=== PATIENT | female | born 1990 | race Caucasian/White ===

== ENCOUNTER 2016-05-23 13:00 | Emergency (ER) | payer OTHER ==
--- NOTE | 2016-05-23 13:12 | ER Document Report ---
ED Medical Screen (RME) - General Stated Complaint: LOWER ABDOMINAL PAIN Notes: 25 yo G1, 20 weeks gestation, c/o pain to lower abdomen and lower back x 2 days. feels hot and fatigued. + nausea. no vaginal bleeding. reports less movement. OB - [facility] - Related Data Allergies/Adverse Reactions: Pertussis Vaccines Allergy (Verified 05/23/16 13:09)
[2016-05-23 14:04] LABS: APPEARANCE,URINE SLIGHTLY-CLOUDY; BILIRUBIN,URINE NEGATIVE (NEGATIVE); GLUCOSE, URINE NEGATIVE (NEGATIVE); KETONES,URINE NEGATIVE (NEGATIVE); LEUKOCYTE ESTERASE,URINE TRACE (NEGATIVE); NITRITE,URINE NEGATIVE (NEGATIVE); PROTEIN,URINE NEGATIVE (NEGATIVE); URINE SPECIFIC GRAVITY 1.008; UROBILINOGEN,URINE NEGATIVE mg/dL (<2.0)
--- NOTE | 2016-05-23 16:52 | ER Document Report ---
ED GI/ - General Chief Complaint: Abdominal Pain Stated Complaint: LOWER ABDOMINAL PAIN Mode of Arrival: Ambulatory Information source: Patient Notes: 25-year-old female who reports is approximately 20 weeks , G1, presents to the emergency department complaining of intermittent bilateral lower abdominal/pelvic sharp pains that radiate to her lower back over the last 2 days. Also states has noted like there is less movement. Reports urinary frequency. Reports noted clear mucus-like discharge from vagina after urinating yesterday otherwise denies dysuria, fever, vaginal bleeding or any other discharge. States has appointment with IMPLEMENTATION ADVISOR tomorrow. TRAVEL OUTSIDE OF THE [place] IN LAST 30 DAYS: No - HPI Patient complains to provider of: Pelvic pain, Timing/Duration: Intermittent, Persistent Quality of pain: Sharp Severity at maximum: Moderate Severity in ED: Almost gone Pain Level: 2 Context: Vaginal bleeding (Compared to normal period): None : 1 OB ultrasound done: Yes vitamins taken: Yes Sexual history: Active. denies: New partner, Unprotected intercourse Similar symptoms previously: No Recently seen / treated by doctor: No - Related Data Allergies/Adverse Reactions: Pertussis Vaccines Allergy (Verified 05/23/16 13:09) Past Medical History - General Information source: Patient - Social History Smoking Status: Never Smoker Chew tobacco use (# tins/day): No Frequency of alcohol use: None Drug Abuse: None Lives with: Family Family History: Reviewed & Not Pertinent Patient has suicidal ideation: No Patient has homicidal ideation: No Endocrine Medical History: Reports: Hx Hypothyroidism Renal/ Medical History: Denies: Hx Peritoneal Dialysis Psychiatric Medical History: Reports: Hx Bipolar Disorder Surgical Hx: Negative - Immunizations Hx Diphtheria, Pertussis, Tetanus Vaccination: Yes Review of Systems - Review of Systems Constitutional: No symptoms reported EENT: No symptoms reported Cardiovascular: No symptoms reported Respiratory: No symptoms reported Gastrointestinal: No symptoms reported Genitourinary: See HPI Female Genitourinary: See HPI Musculoskeletal: No symptoms reported Skin: No symptoms reported Hematologic/Lymphatic: No symptoms reported Neurological/Psychological: No symptoms reported -: Yes All other systems reviewed and negative Physical Exam - Vital signs Vitals: Temp Pulse Resp BP Pulse Ox 98.2 F 87 18 116/64 99 05/23/16 13:08 05/23/16 13:08 05/23/16 13:08 05/23/16 13:08 05/23/16 13:08 Interpretation: Normal - General General appearance: Appears well, Alert - HEENT Head: Normocephalic, Atraumatic Eyes: Normal Pupils: PERRL - Respiratory Respiratory status: No respiratory distress Chest status: Nontender Breath sounds: Normal Chest palpation: Normal - Cardiovascular Rhythm: Regular Heart sounds: Normal auscultation Murmur: No Pulses: Normal: Radial Normal capillary refill: Yes - Abdominal Inspection: Normal Distension: No distension Bowel sounds: Normal Tenderness: Nontender Organomegaly: No organomegaly - Genitourinary Notes: Patient declined pelvic exam - Back Back: Normal, Nontender. No: Tender, Deformity/step-off, CVA tenderness, Vertebra tenderness, Scars, Scoliosis, Wounds, Other - Extremities General upper extremity: Normal inspection, Nontender, Normal color, Normal ROM , Normal strength, Normal temperature. No: Tender, Edema General lower extremity: Normal inspection, Nontender, Normal color, Normal ROM , Normal strength, Normal temperature, Normal weight bearing. No: Tender, Edema - Neurological Neuro grossly intact: Yes Cognition: Normal Orientation: AAOx4 [place] Coma Scale Eye Opening: Spontaneous [place] Coma Scale Verbal: Oriented [place]ila Coma Scale Motor: Obeys Commands [place] Coma Scale Total: 15 Speech: Normal Motor strength normal: LUE, RUE, LLE, RLE Sensory: Normal - Psychological Associated symptoms: Normal affect, Normal mood - Skin Skin Temperature: Warm Skin Moisture: Dry Skin Color: Normal Course - Re-evaluation Re-evalutation: 05/23/16 16:52 Patient hemodynamically stable, in no distress, afebrile, nontoxic, tolerating oral fluids and solids without difficulty or vomiting. OB ultrasound unremarkable. Trace leukocyte esterase and wbc's on UA. Urine culture obtained. Will give short course cephalexin, pt appears stable for discharge and agrees with home care, follow-up with Ob-Lockstitch Waistline Joiner tomorrow, and ED return precautions. Pt presentation, findings, ED care, and plan discussed with ED physician Dr. Walker who concurs with evaluation and treatment. - Vital Signs Vital signs: Temp Pulse Resp BP Pulse Ox 98.2 F 87 18 116/64 99 05/23/16 13:08 05/23/16 13:08 05/23/16 13:08 05/23/16 13:08 05/23/16 13:08 - Laboratory Laboratory results interpreted by me: 05/23/16 05/23/16 13:15 13:15 Beta HCG, Quant 9873.30 H Ur Leukocyte Esterase TRACE H - Diagnostic Test Radiology reviewed: Image reviewed, Reports reviewed Discharge - Discharge Clinical Impression: Pelvic pain during UTI (urinary tract infection) Qualifiers: Urinary tract infection type: site unspecified Hematuria presence: without hematuria Qualified Code(s): N39.0 - Urinary tract infection, site not specified Condition: Stable Disposition: HOME, SELF-CARE Instructions: Pelvic Pain in ([facility]), Urinary Tract Infection ([facility]), Cephalexin ([facility]), Acetaminophen Additional Instructions: Keep your appointment and follow-up with your Ob-Lockstitch Waistline Joiner tomorrow as discussed. Return to the Emergency Department for any worsening symptoms or concerns. Prescriptions: Cephalexin Monohydrate [Keflex 500 mg Capsule] 500 mg PO Q6H 5 Days Referrals: [facility] [Provider Group] - Follow up tomorrow
[2016-05-23 18:08] VITALS: BP 129/62
== END 2016-05-23 17:35 | disposition home or self-care (01) ==
LOC: ER 13:00
DX: N39.0 Urinary tract infection, site not specified (principal); R10.2 Pelvic and perineal pain; R10.30 Lower abdominal pain, unspecified; Z3A.20 20 weeks gestation of pregnancy; M54.5 Low back pain; R35.0 Frequency of micturition
CPT/HCPCS: 36415; 76805; 81001; 84702; 87086; 87804; 93976; 99284

== ENCOUNTER 2016-09-22 17:40 | Outpatient (CLI) | payer OTHER ==
[2016-09-22 18:17] LABS: APPEARANCE,URINE SLIGHTLY-CLOUDY; BILIRUBIN,URINE NEGATIVE (NEGATIVE); GLUCOSE, URINE NEGATIVE (NEGATIVE); KETONES,URINE NEGATIVE (NEGATIVE); LEUKOCYTE ESTERASE,URINE MODERATE (NEGATIVE); NITRITE,URINE NEGATIVE (NEGATIVE); PROTEIN,URINE NEGATIVE (NEGATIVE); URINE SPECIFIC GRAVITY 1.018; UROBILINOGEN,URINE NEGATIVE mg/dL (<2.0)
[2016-09-22 18:48] LABS: URINE BARBITURATES SCREEN NEGATIVE; URINE METHADONE SCREEN NEGATIVE; URINE OPIATES LOW NEGATIVE; URINE PHENCYCLIDINE SCREEN NEGATIVE
--- NOTE | 2016-09-22 19:11 | Non Stress Test Report ---
Non Stress Test Datetime Report Generated by CPN: 09/22/2016 19:10 DEMOGRAPHIC EGA NST: 37.3 INDICATION Indication for Study: Decreased Movement VITAL SIGNS Temperature - NST: 98.0 Pulse - NST: 84 NBPSYS NST: 89 NBPDIA NST: 55 MONITORING Monitor Explained: Monitor Explained; Test Explained; Patient Verbalized Understanding Time on Monitor: 09/22/2016 18:04 Time off Monitor: 09/22/2016 18:58 NST Duration: 54 NST INTERVENTIONS NST Interventions: PO Hydration; Reposition Patient Physician Notified NST: Dr. Bib BABY A: [id number] BABY A Movement : Decreased Contraction Frequency : Rare FHR Baseline : 140 Accelerations : 15X15 Decelerations : None Variability : Moderate 6-25bpm NST Review: Meets Criteria for Reactive NST NST Review and Verified By : Kelley Nick RN NST Results: Reactive NST REPORT Report Trigger: Send Report
== END 2016-09-22 19:05 | disposition home or self-care (01) ==
LOC: LC 17:40
PROVIDERS: ATTEND Obstetrics & Gynecology
PROC: 4A1HXCZ Monitoring of Products of Conception, Cardiac Rate, External Approach (ICD-10-PCS; principal; 2016-09-22)
DX: O36.8130 Decreased fetal movements, third trimester, not applicable or unspecified (principal); Z3A.37 37 weeks gestation of pregnancy
CPT/HCPCS: 59025; 80307; 81005

== ENCOUNTER 2016-10-02 20:07 | Inpatient (IN) | payer OTHER ==
[2016-10-02] MEDS ORDERED: RINGERS SOLUTION,LACTATED 300 ML IV ONE (20:36)
[2016-10-02] MEDS ORDERED: DINOPROSTONE 10 MG VAGINAL INSERT.SR PV PRN (20:36)
[2016-10-02] MEDS ORDERED: OXYTOCIN/NORMAL SALINE 1,000 ML IV PRN (20:36)
[2016-10-02] MEDS ORDERED: DINOPROSTONE 10 MG VAGINAL INSERT.SR ONE (21:21)
[2016-10-02] MEDS: RINGERS SOLUTION,LACTATED 1,000 ML IV PRN (21:27)
[2016-10-02 21:33] LABS: ABSOLUTE EOSINOPHILS # (AUTO) 0.1 10^3/uL (0.0-0.6); ABSOLUTE LYMPHOCYTES (AUTO) 1.7 10^3/uL (0.5-4.7); ABSOLUTE MONOCYTES (AUTO) 0.6 10^3/uL (0.1-1.4); ABSOLUTE NEUT (AUTO) 8.2 10^3/uL (1.7-8.2); BASOPHILS % (AUTO) 0.3 % (0-2); EOSINOPHILS % (AUTO) 0.5 % (0-6); HEMATOCRIT 35.2 % (36.0-47.0); HEMOGLOBIN 11.9 g/dL (12.0-15.5); HGB HCT DIFFERENCE 0.5; LYMPHOCYTES % (AUTO) 16.4 % (13-45); MEAN CORPUSCULAR HEMOGLOBIN 29.9 pg (27.0-33.4); MEAN CORPUSCULAR HGB CONC 33.9 g/dL (32.0-36.0); MEAN CORPUSCULAR VOLUME 88 fl (80-97); MONOCYTES % (AUTO) 5.5 % (3-13); RED BLOOD COUNT 3.99 10^6/uL (3.72-5.28); RED CELL DISTRIBUTION WIDTH 16.3 % (11.5-14.0); SEGMENTED NEUTROPHILS % (AUTO) 77.3 % (42-78); WHITE BLOOD COUNT 10.6 10^3/uL (4.0-10.5)
[2016-10-02 21:33] LABS: APPEARANCE,URINE SLIGHTLY-CLOUDY; BILIRUBIN,URINE NEGATIVE (NEGATIVE); GLUCOSE, URINE NEGATIVE (NEGATIVE); KETONES,URINE NEGATIVE (NEGATIVE); LEUKOCYTE ESTERASE,URINE LARGE (NEGATIVE); NITRITE,URINE NEGATIVE (NEGATIVE); PROTEIN,URINE NEGATIVE (NEGATIVE); URINE SPECIFIC GRAVITY 1.027; UROBILINOGEN,URINE NEGATIVE mg/dL (<2.0)
[2016-10-02] MEDS ORDERED: ACETAMINOPHEN 325 MG TABLET PO ONE (21:44)
[2016-10-02] MEDS ORDERED: ZOLPIDEM TARTRATE 5 MG TABLET PO ONE (21:44)
[2016-10-02 21:45] LABS: ALANINE AMINOTRANSFERASE 20 U/L (9-52); ALBUMIN 2.9 g/dL (3.5-5.0); ALKALINE PHOSPHATASE 108 U/L (38-126); ANION GAP 9 (5-19); ASPARTATE AMINO TRANSFERASE 13 U/L (14-36); BILIRUBIN,DIRECT 0.3 mg/dL (0.0-0.4); BILIRUBIN,TOTAL 0.5 mg/dL (0.2-1.3); BLOOD UREA NITROGEN 12 mg/dL (7-20); CALCIUM 8.5 mg/dL (8.4-10.2); CARBON DIOXIDE 20 mmol/L (22-30); CHLORIDE 107 mmol/L (98-107); GLUCOSE 86 mg/dL (75-110); POTASSIUM 3.9 mmol/L (3.6-5.0); SODIUM 136.3 mmol/L (137-145); TOTAL PROTEIN 5.7 g/dL (6.3-8.2)
[2016-10-02] MEDS ORDERED: ACETAMINOPHEN 325 MG TABLET ONE (21:53)
[2016-10-02] MEDS ORDERED: ZOLPIDEM TARTRATE 5 MG TABLET ONE (21:54)
[2016-10-02 22:00] LABS: URINE BARBITURATES SCREEN NEGATIVE; URINE METHADONE SCREEN NEGATIVE; URINE OPIATES LOW NEGATIVE; URINE PHENCYCLIDINE SCREEN NEGATIVE
[2016-10-03] MEDS: RINGERS SOLUTION,LACTATED 1,000 ML IV PRN (02:52)
--- NOTE | 2016-10-03 10:58 | L&D Progress Notes ---
PROGRESS NOTES Datetime Report Generated by CPN: 10/03/2016 10:57 PROGRESS NOTE Plan: Discharge Vital Signs : Reviewed Comment: Pt decided to not proceed further with induction of labor, Will d/c home, undelivered, and in stable condition IOL planned for 40w nst/paddy/growth brenden @ [facility] at 2pm Labor prec, fm counts discussed VAGINAL EXAM Dilatation: 1 Contractions: rare MEMBRANES Membranes: Intact FETUS A FHR - Baseline: 155 Monitoring: External US Variability: Moderate 6-25bpm Accelerations: 15X15 Decelerations: None FHR Category: Category I SIGNATURE SIGNATURE: [id number] SIGNATURE: [id number] Assignment: Lisa Thorne MD Signature: with User ID: [email or web address] : with User ID: [email or web address]
[2016-10-03 11:01] VITALS: BP 136/75
--- NOTE | 2016-10-03 11:05 | PDOC DISCHARGE SUMMARY ---
General - Admit/Disc Date/PCP Admission Date/Primary Care Provider: 10/02/16 20:07 CHRISTOPHER SHETH MD Discharge Date: 10/03/16 - Discharge Diagnosis (1) Failed induction of labor Is this a current diagnosis for this admission?: YesSummary: pt was iol for poly and gdm, unripe cervix with little change after cervidil, cat 1 fhts, pt choose d/c and to return in 1 w. Has in office f/u saturday at 2pm, (2) GDM, class A1 Is this a current diagnosis for this admission?: YesSummary: stable, has f/u (3) Is this a current diagnosis for this admission?: YesSummary: undelivered, in stable condition - Additional Information Resuscitation Status: Full Code Discharge Diet: Diabetic Discharge Activity: Activity As Tolerated Home Medications: Vit/Iron Fumarate/FA [ Tablet] 1 each PO DAILY 09/22/16 History of Present Illness History of Present Illness: REUBEN BARRON is a 26 year old female Hospital Course Hospital Course: cervidil X1 with minimal change Physical Exam - Physical Exam Vital Signs: Temp Pulse Resp BP Pulse Ox 97.8 F 73 18 136/75 H 98 10/03/16 10:53 10/03/16 10:53 10/03/16 10:53 10/03/16 10:53 10/03/16 10:53 Intake & Output 10/02/16 10/03/16 10/04/16 06:59 06:59 06:59 Weight 126.9 kg General appearance: PRESENT: no acute distress Neurological exam: PRESENT: alert - Gynecological Exam Labia: normal Urethra: normal Introitus: normal Perineum: normal Vagina: normal Cervix: normal Uterus: normal Result Laboratory Results: 10/02/16 21:14 10/02/16 21:14 10/02/16 10/02/16 10/02/16 20:35 21:14 21:14 WBC 10.6 H RBC 3.99 Hgb 11.9 L Hct 35.2 L MCV 88 MCH 29.9 MCHC 33.9 RDW 16.3 H Plt Count 151 Seg Neutrophils % 77.3 Lymphocytes % 16.4 Monocytes % 5.5 Eosinophils % 0.5 Basophils % 0.3 Absolute Neutrophils 8.2 Absolute Lymphocytes 1.7 Absolute Monocytes 0.6 Absolute Eosinophils 0.1 Absolute Basophils 0.0 Sodium Potassium Chloride Carbon Dioxide Anion Gap BUN Creatinine Est GFR ( Amer) Est GFR (Non-Af Amer) Glucose Calcium Total Bilirubin AST ALT Alkaline Phosphatase Total Protein Albumin Urine Color YELLOW Urine Appearance SLIGHTLY-CLOUDY Urine pH 5.0 Ur Specific [place] 1.027 Urine Protein NEGATIVE Urine Glucose (UA) NEGATIVE Urine Ketones NEGATIVE Urine Blood SMALL H Urine Nitrite NEGATIVE Ur Leukocyte Esterase LARGE H Blood Type A POSITIVE Antibody Screen NEGATIVE 10/02/16 21:14 WBC RBC Hgb Hct MCV MCH MCHC RDW Plt Count Seg Neutrophils % Lymphocytes % Monocytes % Eosinophils % Basophils % Absolute Neutrophils Absolute Lymphocytes Absolute Monocytes Absolute Eosinophils Absolute Basophils Sodium 136.3 L Potassium 3.9 Chloride 107 Carbon Dioxide 20 L Anion Gap 9 BUN 12 Creatinine 0.70 Est GFR ( Amer) > 60 Est GFR (Non-Af Amer) > 60 Glucose 86 Calcium 8.5 Total Bilirubin 0.5 AST 13 L ALT 20 Alkaline Phosphatase 108 Total Protein 5.7 L Albumin 2.9 L Urine Color Urine Appearance Urine pH Ur Specific [place] Urine Protein Urine Glucose (UA) Urine Ketones Urine Blood Urine Nitrite Ur Leukocyte Esterase Blood Type Antibody Screen Plan Discharge Plan: d/c home with labor prec. f/u in the office saturday at 2pm iol scheduled for saturday night Time Spent: Less than 30 Minutes
--- NOTE | 2016-10-04 13:10 | Admission Physical ---
Datetime Report Generated by CPN: 10/04/2016 13:10 CURRENT ADMISSION Hx Assessment: The History has been Reviewed and is Current Chief Complaint: Scheduled Induction of Labor Indication for Induction: Polyhydramnios; Other Indication for Induction- Other: GDMA1 Admit Plan: Initiate Labor Induction Protocol ALLERGIES Medication Allergies: Yes Medication Allergies: Pertussis Vaccines (05/23/2016) Latex: No Latex Allergies Food Allergies: N/A Environmental Allergies: N/A OBSTETRICAL HISTORY EDC: 10/10/2016 00:00 : 1 Para: 0 Term: 0 : 0 SAB: 0 IAB: 0 Ectopic: 0 Livin Cesareans: 0 VBACs: 0 Multiple Births: 0 Gestational Diabetes: No Rh Sensitization: No Incompetent Cervix: No SYLVIA: No Infertility: No ART Treatment: No Uterine Anomaly: No IUGR: No Hx Previous C/S: No Macrosomia: No Hx Loss/Stillborn: No PIH: No Hx : No Placenta Previa/Abruption: No Depression/PP Depression: No PTL/PROM: No Post Hemorrhage: No Current Procedures: Ultrasound; NST Obstetrical History Comments: G1-Current GDM SEE RECORDS Alcohol: No Marijuana : No Cocaine: No Other Illicit Drugs: No Cigarettes: Never Smoker. 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 Surgery: No Heart Disease: No Hosp/Surgery: Yes Autoimmune Disorder: No Anesthetic Complications: No Kidney Disease: Yes Neuro/Epilepsy: No Psychiatric Disorders: Yes Other Medical Diseases: No Hepatitis/Liver Disease: No Significant Family History: No Varicosities/Phlebitis: No Thyroid Dysfunction: Yes INFECTIOUS HISTORY Gonorrhea: No Genital Herpes: No Chlamydia: No Tuberculosis: No Syphilis: No Hepatitis: No HIV/AIDS Exposure: No Rash or Viral Illness: No HPV: No PHYSICAL EXAM General: Normal HEENT: Normal Neurologic: Normal Thyroid: Normal Heart: Normal Lungs: Normal Breast: Normal Back: Normal Abdomen: Normal Genitourinary Exam: Normal Extremities: Normal DTRs: Normal Pelvic Type: Adequate Physical Exam Comments: polyhydramnios, efw 7.5 pounds, FS last night was 86 FETUS A Monitoring: External US FHR Category: Category I Admit Comment: cervidil cervical ripening, assure good glycemic control intrapartum PLANS FOR LABOR AND DELIVERY Labor and Delivery: None Pain Management: None Feeding Preference: Breast Benefit of Breast Feed Discussed: Yes Circumcision: Yes INFORMED CONSENT Signature: with User ID: [email or web address]
== END 2016-10-03 11:16 | disposition home or self-care (01) | DRG 781 ==
LOC: LR 20:07
PROVIDERS: ADMIT Specialist; ATTEND Specialist
PROC: 3E0P7GC Introduction of Other Therapeutic Substance into Female Reproductive, Via Natural or Artificial Opening (ICD-10-PCS; principal; 2016-10-02)
DX: O61.0 Failed medical induction of labor (principal); O24.419 Gestational diabetes mellitus in pregnancy, unspecified control; O40.3XX0 Polyhydramnios, third trimester, not applicable or unspecified; O99.283 Endocrine, nutritional and metabolic diseases complicating pregnancy, third trimester; E07.9 Disorder of thyroid, unspecified; Z3A.39 39 weeks gestation of pregnancy; Z88.7 Allergy status to serum and vaccine
CPT/HCPCS: 36415; 59025; 80053; 80307; 81005; 82962; 85025; 86592; 86850; 86900; 86901; J3490

== ENCOUNTER 2016-10-07 22:15 | Inpatient (IN) | payer OTHER ==
--- NOTE | 2016-10-07 22:27 | L&D Progress Notes ---
PROGRESS NOTES Datetime Report Generated by BEN: 10/07/2016 22:27 PROGRESS NOTE Comment: See note by CNM. Reviewed with pt regarding risks of IOL and risks/benefits of remaining undelivered until 40wks. Reviewed plan if continued with IOL would be FB/pitocin/poss cytotec since cvx stil 04/25/hi/post/soft. Reviewed poss continued IOL would continue until tomorrow day. Reviewed risk of Chorio, emergency c/s, Cord prolapse with AROM/SROM, failed induction etc. Questions answered. Pt is with well controlled GDM and poly. EFW 7-8#. Reviewed Indications for IOL and recommendations for diagnosis and reviewed risks of IOL as pt reports that had not been d/w her before. Patient and family discussed options and pt desires to wait a couple of days and proceed when closer to [place]. IOL scheduled for 10/09 for cervidil and f/u scheduled in the office for NST/FEDERICO/Growth US on Saturday. She reports that she thinks she may want c/s - Primary C/S to be d/w pt in the office and will be scheduled if her provider and patient desire to proceed with primary C/S. SIGNATURE SIGNATURE: [id number];[id number] SIGNATURE: [id number] Signature: with User ID: [email or web address]
--- NOTE | 2016-10-07 22:27 | Non Stress Test Report ---
Non Stress Test Datetime Report Generated by CPN: 10/07/2016 22:27 DEMOGRAPHIC EGA NST: 39.0 INDICATION Indication for Study: Other Indication for Study (NST) Other: FAILED IOL MONITORING Monitor Explained: Monitor Explained; Test Explained; Patient Verbalized Understanding Time on Monitor: 10/03/2016 10:30 Time off Monitor: 10/03/2016 11:01 NST Duration: 31 NST INTERVENTIONS NST Interventions: PO Hydration; IV Fluids; Reposition Patient BABY A: [id number] BABY A Movement : Present Contraction Frequency : IRREG FHR Baseline : 140 Accelerations : 15X15 Decelerations : None Variability : Moderate 6-25bpm NST Review: Meets Criteria for Reactive NST NST Review and Verified By : D Bellavance RNC NST Results: Reactive NST REPORT Report Trigger: Send Report
[2016-10-07 22:53] LABS: APPEARANCE,URINE SLIGHTLY-CLOUDY; BILIRUBIN,URINE NEGATIVE (NEGATIVE); GLUCOSE, URINE NEGATIVE (NEGATIVE); KETONES,URINE NEGATIVE (NEGATIVE); LEUKOCYTE ESTERASE,URINE LARGE (NEGATIVE); NITRITE,URINE NEGATIVE (NEGATIVE); PROTEIN,URINE NEGATIVE (NEGATIVE); UROBILINOGEN,URINE NEGATIVE mg/dL (<2.0)
[2016-10-07 23:09] LABS: URINE BARBITURATES SCREEN NEGATIVE; URINE METHADONE SCREEN NEGATIVE; URINE OPIATES LOW NEGATIVE; URINE PHENCYCLIDINE SCREEN NEGATIVE
[2016-10-08 00:05] LABS: AMNISURE (ROM) POSITIVE (NEGATIVE)
[2016-10-08 00:44] LABS: ABSOLUTE LYMPHOCYTES (AUTO) 1.4 10^3/uL (0.5-4.7); ABSOLUTE MONOCYTES (AUTO) 0.7 10^3/uL (0.1-1.4); ABSOLUTE NEUT (AUTO) 11.6 10^3/uL (1.7-8.2); BASOPHILS % (AUTO) 0.2 % (0-2); EOSINOPHILS % (AUTO) 0.3 % (0-6); HEMATOCRIT 37.3 % (36.0-47.0); HEMOGLOBIN 12.6 g/dL (12.0-15.5); HGB HCT DIFFERENCE 0.5; LYMPHOCYTES % (AUTO) 10.2 % (13-45); MEAN CORPUSCULAR HEMOGLOBIN 29.3 pg (27.0-33.4); MEAN CORPUSCULAR HGB CONC 33.7 g/dL (32.0-36.0); MEAN CORPUSCULAR VOLUME 87 fl (80-97); MONOCYTES % (AUTO) 4.9 % (3-13); RED BLOOD COUNT 4.28 10^6/uL (3.72-5.28); RED CELL DISTRIBUTION WIDTH 15.8 % (11.5-14.0); SEGMENTED NEUTROPHILS % (AUTO) 84.4 % (42-78); WHITE BLOOD COUNT 13.7 10^3/uL (4.0-10.5)
[2016-10-08] MEDS: RINGERS SOLUTION,LACTATED 1,000 ML IV PRN ×3 (00:57→02:15)
[2016-10-08] MEDS ORDERED: BUPIVACAINE HCL 0.25 % INJ/PF (2.5 MG/1 ML) 30 ML VIAL ONE (01:58)
[2016-10-08] MEDS ORDERED: FENTANYL/BUPIVACAINE/NS/PF 200 MCG/100 ML RTUINJ EPI ONE (01:58)
[2016-10-08] MEDS ORDERED: EPHEDRINE SULFATE INJ 50 MG/1 ML AMPULE ONE ×3 (01:58→13:57)
[2016-10-08] MEDS ORDERED: LIDOCAINE 1% INJ-PF (10 MG/ML) 30 ML SDV ONE ×2 (02:53→04:22)
[2016-10-08] MEDS ORDERED: OXYTOCIN/NORMAL SALINE 20 UNIT/1,000 ML RTUINJ ONE (04:22)
[2016-10-08] MEDS ORDERED: MISOPROSTOL 0.2 MG TABLET ONE (04:22)
[2016-10-08] MEDS ORDERED: OXYTOCIN/NORMAL SALINE 1,000 ML IV PRN ×2 (07:58→13:23)
[2016-10-08] MEDS ORDERED: SODIUM BICARBONATE 8.4% INJ 50 MEQ/50 ML DISP.SYRIN ONE (09:11)
[2016-10-08] MEDS ORDERED: LIDOCAINE 2%/EPINEPHRINE INJ 20 ML VIAL ONE (09:11)
[2016-10-08] MEDS ORDERED: PHENYLEPHRINE HCL INJ/PF 10 MG/1 ML SDV ONE (09:29)
--- NOTE | 2016-10-08 10:30 | L&D Progress Notes ---
PROGRESS NOTES Datetime Report Generated by CPN: 10/08/2016 10:30 PROGRESS NOTE Impression: Normal Progression of Labor Procedures- Other: morning rounds Plan: Continue Present Management Informed Consent Obtained: Vaginal Delivery; Section Delivery; Induction of Labor; Risks, Benefits and Alternatives Discussed Vital Signs : Reviewed; Within Normal Limits Comment: S: pt. reporting pelvic and hip pain on left side with contractions O: as stated above A:Labor at term- stable, Cat II tracing decels resolving with position changes P: continue position changes, will reassess as clinically indicated or earlier prn. Dr. Jalloh in unit and aware VAGINAL EXAM Dilatation: 8 Dilatation: 4 Effacement: 90 Station: 0 Station: -2 Contractions: 2-4 MEMBRANES Pooling: Positive Membranes: Ruptured Membranes: Ruptured Amniotic Fluid Color: Clear Amniotic Fluid Color: Clear FETUS A Monitoring: Internal Scalp Electrode Variability: Moderate 6-25bpm Decelerations: Early; Late; Variable FHR Category: Category II : 39.5 Estimated Weight (gm): 3500 Presentation: Vertex FETUS C SIGNATURE: [id number] Assignment: Tristen Jalloh DO Signature: with User ID: [email or web address] : with User ID: [email or web address]
[2016-10-08] MEDS ORDERED: DIBUCAINE 1% OINTMENT 28 GM TP PRN (13:23)
[2016-10-08] MEDS ORDERED: MAGNESIUM HYDROXIDE SUSP 30 ML UDCUP PO PRN (13:23)
[2016-10-08] MEDS ORDERED: ACETAMINOPHEN 650 MG SUPP.RECT PR PRN (13:23)
[2016-10-08] MEDS ORDERED: ACETAMINOPHEN WITH CODEINE #3 TABLET PO PRN (13:23)
[2016-10-08] MEDS ORDERED: MEASLES,MUMPS&RUBELLA VACC/PF 0.5 ML VIAL SUBCUT PRN (13:23)
[2016-10-08] MEDS ORDERED: PROMETHAZINE HCL 25 MG TABLET PO PRN (13:23)
[2016-10-08] MEDS ORDERED: GLYCERIN/WITCH HAZEL LEAF 1 EACH MED..PAD TP PRN (13:23)
[2016-10-08] MEDS ORDERED: PROMETHAZINE HCL INJ 25 MG/1 ML VIAL IV PRN (13:23)
[2016-10-08] MEDS ORDERED: PSEUDOEPHEDRINE HCL 30 MG TABLET PO PRN (13:23)
[2016-10-08] MEDS ORDERED: BENZOCAINE/MENTHOL AEROSOL SPRAY 56 ML TOP PRN (13:23)
[2016-10-08] MEDS ORDERED: DIPHENHYDRAMINE HCL 25 MG CAPSULE PO PRN (13:23)
[2016-10-08] MEDS ORDERED: PROMETHAZINE HCL 25 MG SUPP.RECT PR PRN (13:23)
[2016-10-08] MEDS ORDERED: NA PHOS,M-B/NA PHOS,DI-BA (ADULT) 133 ML ENEMA PR PRN (13:23)
[2016-10-08] MEDS ORDERED: DIPH/PERTUSS(ACELL)/TETANUS VAC/PF 0.5 ML SYR (>=10YO) IM PRN (13:23)
--- NOTE | 2016-10-08 14:17 | Delivery Summary ---
Del Sum A-C Datetime Report Generated by CPN: 10/08/2016 14:17 DELIVERY PERSONNEL DELIVERY PERSONNEL: [id number] Delivery Doctor:: Tristen Jalloh DO Nurse Battery Assembler Certified:: Shelly Tenorio CNM Labor and Delivery Nurse:: Kelley Nick RN Neonatal Nurse Practitioner:: HEATHER Tsai Nursery Nurse:: Pat Cadet RN Nursery Nurse:: Britany Gomes RN Student Observers:: Talia Abraham student nurse Medical Education Coordinator/BUSINESS ANALYTICS DIRECTOR: Nirmala Soto CNA II Medical Education Coordinator/BUSINESS ANALYTICS DIRECTOR: Deborah Michelle, BIG DATA HADOOP DEVELOPER MATERNAL INFORMATION Delivery Anesthesia: Epidural Medications After Delivery: Pitocin Bolus-Please Comment; Pitocin Drip 20 Units/1000ml NSS Estimated Blood Loss (ml): 150 Maternal Complications: None Provider Comments: Pt. progressed to c/c/0 with urge to push. Began pushing and with much coaching went on to deliver a viable baby boy with vigorous respiratory effort and cry with tactile stimulation. Cord clamped x 2 and cut and baby placed on maternal abdomen then handed to nursery for evaluation. Placenta delivered spontaneously intact (3vc noted). Fundus firm @ u-1 and bleeding stable. Vaginal and perineual inspection revealed a small abrasion as noted above but hemostatic. Mother and baby remain in room and stable at this time. Nursery in room for delivery due to prolonged bradycardia. Dr. Jalloh also in room for delivery. LABOR SUMMARY EDC: 10/10/2016 00:00 No. Babies in Womb: 1 Attempted: No Labor Anesthesia: Epidural LABOR INFORMATION Reason for Induction: Not Applicable Onset of Labor: 10/07/2016 22:48 Complete Dilatation: 10/08/2016 11:19 Oxytocin: Augmentation Group B Beta Strep: Negative Antibiotics # of Doses: 0 Antibiotics Time of Last Dose: n/a Name of Antibiotic Given: n/a Steroids Given: None Reason Steroids Not Administered: Not Applicable MEMBRANES Membranes Rupture Method: Spontaneous Rupture of Membranes: 10/07/2016 23:27 Length of Rupture (hr): 12.73 Amniotic Fluid Color: Clear Amniotic Fluid Amount: Small Amniotic Fluid Odor: Normal STAGES OF LABOR Stage 1 hr: 12 Stage 1 min: 31 Stage 2 hr: 0 Stage 2 min: 52 Stage 3 hr: 0 Stage 3 min: 8 Total Time in Labor hr: 13 Total Time in Labor min: 31 VAGINAL DELIVERY Episiotomy: None Laceration Extension: First Degree Laceration Type: None Other Laceration: superficial vaginal abrasion-hemostatic Laceration Repair: Not Applicable Laceration Repair Note: n/a Sponge Count Correct: N/A CSECTION DELIVERY Primary Indication: N/A Secondary Indication: N/A CSection Incision: N/A BABY A INFORMATION Infant Delivery Date/Time: 10/08/2016 12:11 Method of Delivery: Vaginal Born in Route : No : N/A Forceps: N/A Vacuum Extraction: N/A Shoulder Dystocia : No PRESENTATION/POSITION BABY A Presentation: Cephalic Cephalic Presentation: Vertex Vertex Position: Left Occipital Anterior Breech Presentation: N/A PLACENTA INFORMATION BABY A Placenta Delivery Time : 10/08/2016 12:19 Placenta Method of Delivery: Spontaneous Placenta Status: Delivered SCORES BABY A Heart Rate 1 min: >100 bpm Resp Effort 1 min: Good Cry Reflex Irritability 1 min: Cough or Sneeze or Pulls Away Muscle Tone 1 min: Active Motion Color 1 min: Body [place], Extremities Blue Resuscitation Effort 1 min: Tactile Stimulation SCORE 1 MIN: 9 Heart Rate 5 min: >100 bpm Resp Effort 5 min: Good Cry Reflex Irritability 5 min: Cough or Sneeze or Pulls Away Muscle Tone 5 min: Active Motion Color 5 min: Body [place], Extremities Blue Resuscitation Effort 5 min: N/A SCORE 5 MIN: 9 Resuscitation Effort 10 min: N/A INFORMATION BABY A Gestational Age at Delivery: 39.5 Gestational Status: Full Term- 39- 40.6 Weeks Outcome : Liveborn Infant Condition : Stable Infant Sex: Male IDENTIFICATION BABY A Infant Verification Date/Time: 10/08/2016 13:09 ID Band Number: [id number] Mother's Name Verified: Yes RN Verifying Infant: Allymaggie Nick, RN Additional Verifying Personnel: Hailee Colvin, RN WEIGHT/LENGTH BABY A Birthweight (gm): 3240 Infant Weight (lb): 7 Infant Weight (oz): 2 Infant Length (in): 20.50 Length (cm): 52.07 CORD INFORMATION BABY A No. Cord Vessels: 3 Nuchal Cord : Around Neck x1, Loose Cord Blood Taken: Yes-For Storage (Mom's Blood type +) Suction: Mouth; Nose ASSESSMENT BABY A Complications: Extended Bradycardia Physical Findings at Delivery: Caput Succedaneum; Molding of the Head; Puncture Wound from Scalp Electrode Infant Respirations: Appears Normal Skin to Skin: Yes Skin to Skin Time (min): 37 Pastoral Counselor/ALS Called : No Care By: Madan Cadet RN Transferred To: Remains with Mother BABY B INFORMATION : N/A
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
[2016-10-08] MEDS: FERROUS SULFATE 325 MG TABLET PO SCH (17:59)
[2016-10-08] MEDS: DOCUSATE SODIUM 100 MG CAPSULE PO SCH (17:59)
[2016-10-08] MEDS: IBUPROFEN 800 MG TABLET PO SCH ×2 (18:04→21:27)
[2016-10-08] MEDS: FAMOTIDINE 20 MG TABLET PO SCH (21:28)
[2016-10-09] MEDS: IBUPROFEN 800 MG TABLET PO SCH ×3 (05:22→21:02)
[2016-10-09 07:26] LABS: HEMATOCRIT 31.8 % (36.0-47.0); HEMOGLOBIN 10.6 g/dL (12.0-15.5); MEAN CORPUSCULAR HEMOGLOBIN 29.5 pg (27.0-33.4); MEAN CORPUSCULAR HGB CONC 33.5 g/dL (32.0-36.0); MEAN CORPUSCULAR VOLUME 88 fl (80-97); RED BLOOD COUNT 3.61 10^6/uL (3.72-5.28); WHITE BLOOD COUNT 11.8 10^3/uL (4.0-10.5)
--- NOTE | 2016-10-09 09:31 | PDOC PROGRESS REPORT ---
Subjective-OB Subjective: Post Delivery Day: 26 year old. Denies any needs at this time Sitting up in bed, showing me pictures of baby, hsb at BS, baby weighed 7-2, desires circumcision, has help at home, eating well, ambulating, not on any medications, , moderate bleeding Physical Exam (OB) Vital Signs: Temp Pulse Resp BP Pulse Ox 97.9 F 68 16 108/67 99 10/09/16 07:28 10/09/16 07:28 10/09/16 07:28 10/09/16 07:28 10/09/16 07:28 Intake & Output 10/08/16 10/09/16 10/10/16 06:59 06:59 06:59 Weight 127.3 kg - Lochia Lochia Amount: Scant < 10 ml Lochia Color: Rubra/Red - Abdomen Description: Soft, Flat Hernia Present: No Fundal Description: Firm, Midline Fundal Height: u/u - u/2 Objective-Diagnostic Laboratory: 10/09/16 07:03 10/09/16 07:03 WBC 11.8 H RBC 3.61 L Hgb 10.6 L Hct 31.8 L MCV 88 MCH 29.5 MCHC 33.5 RDW 16.0 H Plt Count 146 L Assessment and Plan(PN) - Assessment and Plan (1) Vaginal delivery Is this a current diagnosis for this admission?: Yes (2) GDM, class A1 Is this a current diagnosis for this admission?: Yes - Time Spent with Patient Time with patient: Less than 15 minutes Medications reviewed and adjusted accordingly: Yes - Disposition Anticipated Discharge: Home Within: within 24 hours
[2016-10-09] MEDS: FAMOTIDINE 20 MG TABLET PO SCH ×2 (10:25→21:02)
[2016-10-09] MEDS: DOCUSATE SODIUM 100 MG CAPSULE PO SCH ×2 (10:25→17:26)
[2016-10-09] MEDS: SENNOSIDES/DOCUSATE 8.6-50 MG 1 EACH TABLET PO SCH (10:25)
[2016-10-09] MEDS: FERROUS SULFATE 325 MG TABLET PO SCH ×2 (10:25→17:25)
[2016-10-09] MEDS: PRENATAL VITAMIN W-O CA NO5/FE FUMARATE/FA CAPSULE PO SCH (10:26)
[2016-10-10] MEDS: IBUPROFEN 800 MG TABLET PO SCH ×2 (06:01→13:46)
[2016-10-10 08:36] VITALS: BP 119/81
[2016-10-10] MEDS: DOCUSATE SODIUM 100 MG CAPSULE PO SCH (10:06)
[2016-10-10] MEDS: FERROUS SULFATE 325 MG TABLET PO SCH (10:06)
[2016-10-10] MEDS: SENNOSIDES/DOCUSATE 8.6-50 MG 1 EACH TABLET PO SCH (10:06)
[2016-10-10] MEDS: FAMOTIDINE 20 MG TABLET PO SCH (10:06)
[2016-10-10] MEDS: PRENATAL VITAMIN W-O CA NO5/FE FUMARATE/FA CAPSULE PO SCH (10:07)
--- NOTE | 2016-10-10 10:48 | PDOC DISCHARGE SUMMARY ---
Final Diagnosis Discharge Date: 10/10/16 Discharge Data - Discharge Medication Home Medications: Vit/Iron Fumarate/FA [ Tablet] 1 each PO DAILY 09/22/16 Docusate Sodium [Colace 100 mg Capsule] 100 mg PO BID #60 capsule 10/10/16 Ferrous Sulfate [Feosol 325 mg Tablet] 325 mg PO BID #60 tablet 10/10/16 Ibuprofen [Motrin 800 mg Tablet] 800 mg PO Q8 #60 tablet 10/10/16 Gestational Age: 39.5 Reason(s) for Admission: Onset of Labor, Gestional Diabetes Procedures: NST Intrapartum Procedure(s): Spontaneous Vaginal Delivery - [place] Data Baby 1 Male at 1 minute: 9 at 5 minutes: 9 Weight: 3240 kg Home with Mother: Yes Complications: No - Diagnosis Test Laboratory: Temp Pulse Resp BP Pulse Ox 97.7 F 79 16 119/81 100 10/10/16 07:57 10/10/16 07:57 10/10/16 07:57 10/10/16 07:57 10/10/16 07:57 10/07/16 10/08/16 10/09/16 22:25 00:28 07:03 RBC 4.28 3.61 L Hgb 12.6 10.6 L Hct 37.3 31.8 L Urine Opiates Screen NEGATIVE - Discharge information/Instructions Discharge Activity: Activity As Tolerated, Pelvic Rest, No tub bath Discharge Diet: Regular Disposition: HOME, SELF-CARE Follow up with: [facility] in: 4, Weeks
== END 2016-10-10 19:10 | disposition home or self-care (01) | DRG 775 ==
LOC: LC 22:15 → LR 10-08 00:13 → 2S 10-08 14:55
PROVIDERS: ADMIT Obstetrics & Gynecology; ATTEND Obstetrics & Gynecology
PROC: 10E0XZZ Delivery of Products of Conception, External Approach (ICD-10-PCS; principal; 2016-10-08)
PROC: 4A1H7CZ Monitoring of Products of Conception, Cardiac Rate, Via Natural or Artificial Opening (ICD-10-PCS; 2016-10-08)
PROC: 10H073Z Insertion of Monitoring Electrode into Products of Conception, Via Natural or Artificial Opening (ICD-10-PCS; 2016-10-08)
DX: O24.429 Gestational diabetes mellitus in childbirth, unspecified control (principal); O40.3XX0 Polyhydramnios, third trimester, not applicable or unspecified; O99.284 Endocrine, nutritional and metabolic diseases complicating childbirth; E03.9 Hypothyroidism, unspecified; O99.344 Other mental disorders complicating childbirth; F31.9 Bipolar disorder, unspecified; O69.81X0 Labor and delivery complicated by cord around neck, without compression, not applicable or unspecified; Z88.7 Allergy status to serum and vaccine; Z3A.39 39 weeks gestation of pregnancy; Z37.0 Single live birth
CPT/HCPCS: 36415; 80307; 81005; 82962; 84112; 85025; 85027; 86592; 86850; 86900; 86901; 94760; J2370; J2590; J3490

== ENCOUNTER 2018-03-03 08:03 | Observation (INO) | payer OTHER ==
[2018-03-03] MEDS ORDERED: MORPHINE SULFATE 10 MG/ML INJ IV ONE (08:38)
[2018-03-03] MEDS ORDERED: ONDANSETRON HCL INJ/PF 4 MG/2 ML SDV IV ONE (08:38)
[2018-03-03] MEDS ORDERED: NORMAL SALINE 1000 ML 1,000 ML IV ONE (08:38)
[2018-03-03] MEDS ORDERED: GLYCOPYRROLATE 1 MG/5 ML SYRINGE ONE (08:42)
[2018-03-03] MEDS ORDERED: VECURONIUM BROMIDE INJ 10 MG VIAL IV ONE (08:42)
[2018-03-03] MEDS ORDERED: NEOSTIGMINE METHYLSULFATE 10 MG/10 ML VIAL ONE (08:42)
[2018-03-03] MEDS ORDERED: SUCCINYLCHOLINE CHLORIDE INJ 200 MG/10 ML VIAL ONE (08:42)
[2018-03-03 08:43] LABS: ABSOLUTE BASOPHILS # (AUTO) 0.1 10^3/uL (0.0-0.2); ABSOLUTE EOSINOPHILS # (AUTO) 0.1 10^3/uL (0.0-0.6); ABSOLUTE LYMPHOCYTES (AUTO) 2.2 10^3/uL (0.5-4.7); ABSOLUTE MONOCYTES (AUTO) 0.7 10^3/uL (0.1-1.4); ABSOLUTE NEUT (AUTO) 9.5 10^3/uL (1.7-8.2); BASOPHILS % (AUTO) 1.1 % (0-2); EOSINOPHILS % (AUTO) 0.8 % (0-6); HEMATOCRIT 40.8 % (36.0-47.0); HEMOGLOBIN 13.9 g/dL (12.0-15.5); LYMPHOCYTES % (AUTO) 17.3 % (13-45); MEAN CORPUSCULAR HEMOGLOBIN 27.8 pg (27.0-33.4); MEAN CORPUSCULAR HGB CONC 34.1 g/dL (32.0-36.0); MEAN CORPUSCULAR VOLUME 82 fl (80-97); MONOCYTES % (AUTO) 5.7 % (3-13); PLATELET COUNT 249 10^3/uL (150-450); RED BLOOD COUNT 5.01 10^6/uL (3.72-5.28); RED CELL DISTRIBUTION WIDTH 15.2 % (11.5-14.0); SEGMENTED NEUTROPHILS % (AUTO) 75.1 % (42-78); TOTAL CELLS COUNTED % (AUTO) 100 %; WHITE BLOOD COUNT 12.6 10^3/uL (4.0-10.5)
--- NOTE | 2018-03-03 08:45 | ER Document Report ---
ED General - General Chief Complaint: Abdominal Pain Stated Complaint: ABDOMINAL PAIN Time Seen by Provider: 03/03/18 08:30 TRAVEL OUTSIDE OF THE [place] IN LAST 30 DAYS: No - HPI Notes: Patient is a 27-year-old female that presents to the emergency department for chief complaint of diffuse abdominal pain. Patient reports constant diffuse abdominal pain for the last 3 days. She states it is sharp and radiates across her upper abdomen into her back. She denies any aggravating or relieving factors. She does have a history of Crohn' s disease but states she is not on any daily medications. She has never had a severe Crohn's flare. She states this pain is more severe than any pain she has had with Crohn's before. She denies any black or bloody stools and states that she is having diarrhea that is green and mucousy. She denies any recent antibiotics or travel. She reports a few episodes of emesis when the pain began a few days ago. She has not had any vomiting in the last 2 days. She denies any fevers but states she is having sweats and chills. Today she states she has had hematuria. She denies history of kidney stones. Past Medical History: IBS, Crohn's disease, PCOS Past Surgical History: Negative Social History: Denies drugs alcohol and tobacco Family History: Reviewed and noncontributory for presenting illness Allergies: Reviewed, see documented allergy list. REVIEW OF SYSTEMS: CONSTITUTIONAL : No fever chills diaphoresis No recent illness EENT: No vision changes No congestion No sore throat CARDIOVASCULAR: No chest pain No palpitations RESPIRATORY: No shortness of breath No cough No difficulty breathing GASTROINTESTINAL: abdominal pain nausea vomiting diarrhea GENITOURINARY: No dysuria hematuria No difficulty urinating MUSCULOSKELETAL: No back pain No leg pain No arm pain SKIN: No rashes No lesions LYMPHATIC: No swollen, enlarged glands. NEUROLOGICAL: No lightheadedness No headache No weakness No paresthesias PSYCHIATRIC: No anxiety No depression PHYSICAL EXAMINATION: Vital signs reviewed, nursing noted reviewed. GENERAL: Well-appearing, well-nourished and in no acute distress. HEAD: Atraumatic, normocephalic. EYES: Eyes appear normal, extraocular movements intact, sclera anicteric, conjunctiva are normal. ENT: nares patent, oropharynx clear without exudates. Moist mucous membranes. NECK: Normal range of motion, supple without lymphadenopathy LUNGS: Breath sounds clear to auscultation bilaterally and equal. No wheezes rales or rhonchi. HEART: Regular rate and rhythm without murmurs ABDOMEN: Soft, left lower quadrant tenderness, normoactive bowel sounds. No rebound, guarding, or rigidity. No masses appreciated. EXTREMITIES: Nontender, good range of motion, no pitting or edema. NEUROLOGICAL: No focal neurological deficits. Moves all extremities spontaneously Motor and sensory grossly intact on exam. PSYCH: Normal mood, normal affect. SKIN: Warm, Dry, normal turgor, no rashes or lesions noted on exposed skin - Related Data Allergies/Adverse Reactions: Pertussis Vaccines Allergy (Verified 03/03/18 08:07) Past Medical History - Social History Smoking Status: Never Smoker Family History: Reviewed & Not Pertinent Patient has suicidal ideation: No Patient has homicidal ideation: No Endocrine Medical History: Reports: Hx Hypothyroidism Renal/ Medical History: Denies: Hx Peritoneal Dialysis Psychiatric Medical History: Reports: Hx Bipolar Disorder - Immunizations Hx Diphtheria, Pertussis, Tetanus Vaccination: Yes Physical Exam - Vital signs Vitals: Temp Pulse Resp BP Pulse Ox 98 F 94 14 130/74 H 98 03/03/18 08:09 03/03/18 08:09 03/03/18 08:09 03/03/18 08:09 03/03/18 08:09 Course - Re-evaluation Re-evalutation: 03/03/18 08:44 Vitals reviewed. Nursing notes reviewed. Patient given IV hydration, morphine and Zofran for symptomatic management. 03/03/18 10:[address] scan is consistent with acute appendicitis. This was discussed with Dr. Arnold who evaluated the patient in the emergency room. She will be admitted to Dr. Arnold for operative management. Patient is in agreement with this plan. She is n.p.o. Admitted in stable condition. Laboratory 03/03/18 03/03/18 03/03/18 08:24 08:24 08:24 WBC 12.6 H RBC 5.01 Hgb 13.9 Hct 40.8 MCV 82 MCH 27.8 MCHC 34.1 RDW 15.2 H Plt Count 249 Seg Neutrophils % 75.1 Lymphocytes % 17.3 Monocytes % 5.7 Eosinophils % 0.8 Basophils % 1.1 Absolute Neutrophils 9.5 H Absolute Lymphocytes 2.2 Absolute Monocytes 0.7 Absolute Eosinophils 0.1 Absolute Basophils 0.1 Sodium 141.3 Potassium 4.0 Chloride 104 Carbon Dioxide 22 Anion Gap 15 BUN 16 Creatinine 0.83 Est GFR ( Amer) > 60 Est GFR (Non-Af Amer) > 60 Glucose 101 Calcium 9.5 Total Bilirubin 1.3 Direct Bilirubin 0.4 Neonat Total Bilirubin Not Reportable Neonat Direct Bilirubin Not Reportable Neonat Indirect Bili Not Reportable AST 22 ALT 24 Alkaline Phosphatase 96 Total Protein 7.5 Albumin 4.2 Lipase 49.4 Urine Color MALINA Urine Appearance CLOUDY Urine pH 6.0 Ur Specific [place] 1.026 Urine Protein 100 H Urine Glucose (UA) NEGATIVE Urine Ketones NEGATIVE Urine Blood LARGE H Urine Nitrite NEGATIVE Urine Bilirubin NEGATIVE Urine Urobilinogen 2.0 H Ur Leukocyte Esterase NEGATIVE Urine WBC (Auto) >182 Urine RBC (Auto) >182 Urine WBC Clumps FEW Squamous Epi Cells Auto 7 Urine Mucus (Auto) OCC Urine Ascorbic Acid NEGATIVE Urine HCG, Qual NEGATIVE Abdomen/Pelvis CT 03/03/18 08:39 IMPRESSION: There is a fluid-filled appendix measuring 13 mm in diameter medial to the cecal base with associated fat stranding. Findings are consistent with appendicitis. No evidence of perforation or abscess. - Vital Signs Vital signs: Temp Pulse Resp BP Pulse Ox 98 F 82 16 104/67 99 03/03/18 10:25 03/03/18 10:25 03/03/18 10:25 03/03/18 10:25 03/03/18 10:25 - Laboratory Result Diagrams: 03/03/18 08:24 03/03/18 08:24 Laboratory results interpreted by me: 03/03/18 03/03/18 08:24 08:24 WBC 12.6 H RDW 15.2 H Absolute Neutrophils 9.5 H Urine Protein 100 H Urine Blood LARGE H Urine Urobilinogen 2.0 H Discharge - Discharge Clinical Impression: Acute appendicitis Qualifiers: Acute appendicitis type: with localized peritonitis Appendicitis gangrene presence: unspecified whether gangrene present Appendicitis perforation presence : without perforation Appendicitis abscess presence: without abscess Qualified Code(s): K35.30 - Acute appendicitis with localized peritonitis, without perforation or gangrene Condition: Stable Disposition: ADMITTED INPATIENT Admitting Provider: Surgicalist Unit Admitted: Surgical Floor Referrals: OZZY VELASCO MD [Primary Care Provider] - Follow up as needed
[2018-03-03 09:02] LABS: APPEARANCE,URINE CLOUDY; BILIRUBIN,URINE NEGATIVE (NEGATIVE); COLOR,URINE AMBER; GLUCOSE, URINE NEGATIVE (NEGATIVE); KETONES,URINE NEGATIVE (NEGATIVE); LEUKOCYTE ESTERASE,URINE NEGATIVE (NEGATIVE); NITRITE,URINE NEGATIVE (NEGATIVE); PROTEIN,URINE 100 mg/dL (NEGATIVE); URINE SPECIFIC GRAVITY 1.026
[2018-03-03 09:10] LABS: ALANINE AMINOTRANSFERASE 24 U/L (9-52); ALBUMIN 4.2 g/dL (3.5-5.0); ALKALINE PHOSPHATASE 96 U/L (38-126); ANION GAP 15 (5-19); ASPARTATE AMINO TRANSFERASE 22 U/L (14-36); BILIRUBIN,DIRECT 0.4 mg/dL (0.0-0.4); BILIRUBIN,TOTAL 1.3 mg/dL (0.2-1.3); BLOOD UREA NITROGEN 16 mg/dL (7-20); CALCIUM 9.5 mg/dL (8.4-10.2); CARBON DIOXIDE 22 mmol/L (22-30); CHLORIDE 104 mmol/L (98-107); GLUCOSE 101 mg/dL (75-110); LIPASE 49.4 U/L (23-300); SODIUM 141.3 mmol/L (137-145); TOTAL PROTEIN 7.5 g/dL (6.3-8.2)
--- NOTE | 2018-03-03 09:50 | RADIOLOGY REPORT (SQ) ---
EXAM DESCRIPTION: CT ABD/PELVIS WITH IV ONLY COMPLETED DATE/TIME: 03/03/2018 9:37 am REASON FOR STUDY: abdominal pain COMPARISON: None. TECHNIQUE: CT scan of the abdomen and pelvis performed using helical scanning technique with dynamic intravenous contrast injection. No oral contrast. Images reviewed with lung, soft tissue, and bone windows. Reconstructed coronal and sagittal MPR images reviewed. Delayed images for evaluation of the urinary system also acquired. All images stored on PACS. All CT scanners at this facility use dose modulation, iterative reconstruction, and/or weight based d osing when appropriate to reduce radiation dose to as low as reasonably achievable (ALARA). [facility]: Dose Right [facility]: CareDose [facility]: Dose Right [facility]: Teradose 4D [facility]: CytoPherx CONTRAST TYPE AND DOSE: contrast/concentration: Isovue 350.00 mg/ml; Total Contrast Delivered: 99.0 ml; Total Saline Delivered: 71.0 ml RENAL FUNCTION: None required. The patient is less than 50 years old. RADIATION DOSE: CT Rad equipment meets quality standard of care and radiation dose reduction techniq ues were employed. CTDIvol: NaN - NaN mGy. DLP: 0 mGy-cm.. LIMITATIONS: None. FINDINGS: LOWER CHEST: No significant findings. No nodules or infiltrates. LIVER: Normal size. No masses. No dilated ducts. SPLEEN: Normal size. No focal lesions. PANCREAS: No masses. No significant calcifications. No adjacent inflammation or peripancreatic fluid collections. Pancreatic duct not dilated. GALLBLADDER: No identified stones by CT criteria. No inflammatory changes to suggest cholecystitis. ADRENAL GLANDS: No significant masses or asymmetry. RIGHT KIDNEY AND URETER: No solid masses. No significant calcifications. No hydronephrosis or hyd roureter. LEFT KIDNEY AND URETER: No solid masses. No significant calcifications. No hydronephrosis or hydr oureter. AORTA AND VESSELS: No aneurysm. No dissection. Renal arteries, SMA, celiac without stenosis. RETROPERITONEUM: No retroperitoneal adenopathy, hemorrhage or masses. BOWEL AND PERITONEAL CAVITY: No masses or inflammatory changes. No free fluid or peritoneal masses. APPENDIX: There is a fluid-filled appendix measuring 13 mm in diameter medial to the cecal base with associated fat stranding. PELVIS: No mass. No free fluid. Normal bladder. ABDOMINAL WALL: No masses. No hernias. BONES: No significant or acute findings. OTHER: No other significant finding. IMPRESSION: There is a fluid-filled appendix measuring 13 mm in diameter medial to the cecal base wi th associated fat stranding. Findings are consistent with appendicitis. No evidence of perforation or abscess. TECHNICAL DOCUMENTATION: JOB ID: [id number] Quality ID # [id number]: Final reports with documentation of one or more dose reduction techniques (e.g., Au tomated exposure control, adjustment of the mA and/or kV according to patient size, use of iterative reconstruction technique) 2010 [employer]- All Rights Reserved Reading location - IP/workstation name: [email or web address]
[2018-03-03] MEDS ORDERED: FENTANYL CITRATE INJ/PF 100 MCG/2 ML AMPUL ONE (10:19)
[2018-03-03] MEDS ORDERED: KETOROLAC TROMETHAMINE 60 MG/2 ML SDV ONE (10:19)
[2018-03-03] MEDS ORDERED: DEXAMETHASONE SOD PHOSPHATE INJ 4 MG/1 ML VIAL ONE (10:19)
[2018-03-03] MEDS ORDERED: ONDANSETRON HCL INJ/PF 4 MG/2 ML SDV ONE (10:19)
[2018-03-03] MEDS ORDERED: MIDAZOLAM 2 MG/2 ML INJ ONE (10:19)
[2018-03-03] MEDS ORDERED: EPHEDRINE SULFATE INJ 50 MG/1 ML AMPULE ONE (10:19)
[2018-03-03] MEDS ORDERED: ACETAMINOPHEN 1,000 MG/100 ML RTUPB IV ONE (10:20)
[2018-03-03] MEDS ORDERED: PROPOFOL INJ 200 MG/20 ML VIAL IV ONE (10:20)
[2018-03-03] MEDS ORDERED: HYDROMORPHONE HCL INJ/PF 2 MG/ML AMPULE ONE (10:20)
[2018-03-03] MEDS ORDERED: BUPIVACAINE HCL 0.25 % INJ/PF (2.5 MG/1 ML) 30 ML VIAL ONE (10:29)
--- NOTE | 2018-03-03 10:31 | PDOC H&P ---
History of Present Illness Admission Date/PCP: OZZY VELASCO Patient complains of: Abdominal pain History of Present Illness: REUBEN BARRON is a 27 year old female Who presents to the emergency department via ground rescue with a 3-day history of abdominal pain. This started at 2:00 in the morning, Saturday with crampy abdominal pain and loose stools. She continued to have abdominal pain over the past 3 days associated with nausea and vomiting. Because of persisting pain, she came via ground rescue to [facility] emergency department where she was found to have exquisite right lower quadrant tenderness, leukocytosis, and CT scan findings consistent with acute appendicitis. She was advised admission, surgery was consulted. Patient has a history of irritable bowel syndrome; she is undergone multiple colonoscopies and multiple states by multiple machine heel builder; the suggestion of Crohn's disease was made but never confirmed. She has never been on any medications for intestines. Past Medical History Past Medical History: Overweight; irritable bowel syndrome; polycystic ovary syndrome Endocrine Medical History: Reports: Hypothyroidism Psychiatric Medical History: Reports: Bipolar Disorder Past Surgical History Past Surgical History: None Social History Smoking Status: Never Smoker Frequency of Alcohol Use: None Hx Recreational Drug Use: No Family History Family History: None, Reviewed & Not Pertinent Parental Family History Reviewed: Yes Children Family History Reviewed: Yes Sibling(s) Family History Reviewed.: Yes Medication/Allergy Home Medications: Vit/Iron Fum/Folic AC [ Tablet] 1 each PO DAILY 09/22/16 Docusate Sodium [Colace 100 mg Capsule] 100 mg PO BID #60 capsule 10/10/16 Ferrous Sulfate [Feosol 325 mg Tablet] 325 mg PO BID #60 tablet 10/10/16 Ibuprofen [Motrin 800 mg Tablet] 800 mg PO Q8 #60 tablet 10/10/16 Allergies/Adverse Reactions: Pertussis Vaccines Allergy (Verified 03/03/18 08:07) Review of Systems Constitutional: PRESENT: as per HPI Eyes: ABSENT: visual disturbances Ears: ABSENT: hearing changes Cardiovascular: ABSENT: chest pain, dyspnea on exertion, edema, orthropnea, palpitations Respiratory: ABSENT: cough, hemoptysis Gastrointestinal: PRESENT: as per HPI Genitourinary: ABSENT: dysuria, hematuria Musculoskeletal: PRESENT: as per HPI, other - Patient has felt weak and had some difficulty ambulating due to pain. ABSENT: joint swelling Physical Exam Vital Signs: Temp Pulse Resp BP Pulse Ox 98 F 94 14 130/74 H 98 03/03/18 08:09 03/03/18 08:09 03/03/18 08:09 03/03/18 08:09 03/03/18 08:09 Intake & Output 03/02/18 03/03/18 03/04/18 06:59 06:59 06:59 Weight 118.2 kg General appearance: PRESENT: no acute distress Head exam: PRESENT: normocephalic Eye exam: PRESENT: EOMI Mouth exam: ABSENT: dry mucosa Neck exam: PRESENT: full ROM Respiratory exam: PRESENT: clear to auscultation dominic Cardiovascular exam: PRESENT: RRR Pulses: PRESENT: normal carotid pulses, normal radial pulses, normal femoral pulses GI/Abdominal exam: PRESENT: other - Rotund; tender right lower quadrant with guarding. Rectal exam: PRESENT: deferred Extremities exam: PRESENT: full ROM Musculoskeletal exam: PRESENT: full ROM Neurological exam: PRESENT: alert, awake, oriented to person, oriented to time, oriented to situation Skin exam: PRESENT: dry Results Laboratory Results: 03/03/18 08:24 03/03/18 08:24 03/03/18 03/03/18 03/03/18 08:24 08:24 08:24 WBC 12.6 H RBC 5.01 Hgb 13.9 Hct 40.8 MCV 82 MCH 27.8 MCHC 34.1 RDW 15.2 H Plt Count 249 Seg Neutrophils % 75.1 Lymphocytes % 17.3 Monocytes % 5.7 Eosinophils % 0.8 Basophils % 1.1 Absolute Neutrophils 9.5 H Absolute Lymphocytes 2.2 Absolute Monocytes 0.7 Absolute Eosinophils 0.1 Absolute Basophils 0.1 Sodium 141.3 Potassium 4.0 Chloride 104 Carbon Dioxide 22 Anion Gap 15 BUN 16 Creatinine 0.83 Est GFR ( Amer) > 60 Est GFR (Non-Af Amer) > 60 Glucose 101 Calcium 9.5 Total Bilirubin 1.3 AST 22 ALT 24 Alkaline Phosphatase 96 Total Protein 7.5 Albumin 4.2 Lipase 49.4 Urine Color MALINA Urine Appearance CLOUDY Urine pH 6.0 Ur Specific [place] 1.026 Urine Protein 100 H Urine Glucose (UA) NEGATIVE Urine Ketones NEGATIVE Urine Blood LARGE H Urine Nitrite NEGATIVE Ur Leukocyte Esterase NEGATIVE Urine WBC (Auto) >182 Urine RBC (Auto) >182 Impressions: Abdomen/Pelvis CT 03/03/18 08:39 IMPRESSION: There is a fluid-filled appendix measuring 13 mm in diameter medial to the cecal base with associated fat stranding. Findings are consistent with appendicitis. No evidence of perforation or abscess. Assessment & Plan - Diagnosis (1) Acute appendicitis Qualifiers: Appendicitis perforation presence: without perforation Appendicitis abscess presence: without abscess Is this a current diagnosis for this admission?: Yes Plan: Impression and recommendations: Patient's clinical history physical examination and CT scan findings are consistent with acute appendicitis. Patient deserves admission, and surgical management. Plan: 1. Will admit to surgical service, keep n.p.o. on IV fluids and intravenous antibiotics. 2. Plan for laparoscopic, possible open appendectomy, 1 hour, main operating room, possible drain, possible need for extended antibiotics Patient and expressed understanding and agreed to proceed (2) Polycystic ovary syndrome Is this a current diagnosis for this admission?: Yes (3) Overweight Is this a current diagnosis for this admission?: Yes (4) Irritable bowel syndrome Is this a current diagnosis for this admission?: No - Time Time Spent: 30 to 50 Minutes Critical Time spent with patient: 15-24 minutes Medications reviewed and adjusted accordingly: Yes Anticipated discharge: Home - Inpatient Certification Based on my medical assessment, after consideration of the patient's comorbidities, presenting symptoms, or acuity I expect that the services needed warrant INPATIENT care.: Yes I certify that my determination is in accordance with my understanding of Medicare's requirements for reasonable and necessary INPATIENT services [42 CFR 412.3e].: Yes Medical Necessity: Need For IV Fluids, Need for Pain Control, Need for IV Antibiotics, Need for Surgery
[2018-03-03] MEDS ORDERED: CEFAZOLIN 1 GM/D5W RTU 1 GM/50 ML RTUPB IV ONE (10:45)
[2018-03-03] MEDS ORDERED: CEFAZOLIN INJ 1 GM VIAL ONE (10:56)
[2018-03-03] MEDS ORDERED: FENTANYL CITRATE INJ/PF 100 MCG/2 ML AMPUL IV PRN ×3 (11:29)
[2018-03-03] MEDS ORDERED: OXYCODONE-ACETAMINOPHEN 5-325 MG TABLET PO PRN ×2 (11:29)
[2018-03-03] MEDS ORDERED: MEPERIDINE HCL/PF INJ 25 MG/1 ML DISP.SYRIN IV PRN (11:29)
[2018-03-03] MEDS ORDERED: PROMETHAZINE HCL INJ 25 MG/1 ML VIAL IV PRN ×2 (11:29)
[2018-03-03] MEDS ORDERED: ONDANSETRON HCL INJ/PF 4 MG/2 ML SDV IV PRN ×2 (11:29→11:53)
[2018-03-03] MEDS ORDERED: MORPHINE SULFATE 10 MG/ML INJ IV PRN (11:29)
[2018-03-03] MEDS ORDERED: DIPHENHYDRAMINE HCL 50 MG/ML VIAL IV PRN (11:29)
[2018-03-03] MEDS ORDERED: KETOROLAC TROMETHAMINE 10 MG TABLET PO PRN (11:53)
--- NOTE | 2018-03-03 11:58 | Operative Report ---
Operative Report DATE OF SURGERY: 03/03/18 PREOPERATIVE DIAGNOSIS: Acute appendicitis POSTOPERATIVE DIAGNOSIS: Same with suppuration; no perforation OPERATION: Laparoscopic appendectomy SURGEON: MAIA ALMEIDA ANESTHESIA: GA TISSUE REMOVED OR ALTERED: 1 appendix COMPLICATIONS: None PROCEDURE: Patient was taken to the preop holding area to the main operating room where he anesthesia was induced. Arms were abducted, abdomen prepped and draped in sterile fashion with Betadine Surgical plan and surgical timeout were conducted. Markings were made on the skin for 3 port laparoscopic surgery. Skin was anesthetized with 1% plain lidocaine. A supraumbilical vertical incision was made with a knife, Veress needle was inserted the peritoneal cavity pneumoperitoneum was established. Veress needle was removed, 5 mm ports inserted a 5 mm flexible scope was inserted. Under direct visualization 2 additional ports were placed 1 5 mm suprapubic position and a 12 mm left lower quadrant. Of note there was safe entry into the peritoneal cavity with no evidence of visceral or vascular injury Findings were significant for an acutely inflamed appendix stuck behind the terminal ileum. There was no evidence of perforation. The appendix was milked into the free peritoneal space. Suction was used to open up the attachments between the mesial appendix and the cecum and the retroperitoneum. We used a grasper to open up the mesoappendix at the appendiceal base. We brought onto the field a 45 mm Ethicon blue load stapler and fired it across the mesoappendix. We now inspected the base of the appendix and felt confident we amputate the appendix with the second firing of the stapler and so this in fact was affected. Now the appendix was placed in Endobag and brought out of the patient to the left lower quadrant port site incision. We returned the peritoneal cavity check for bleeding and there was none. Staple lines looked excellent and photo taken. Peritoneal cavity in the right paracolic region was irrigated only. No drain was indicated. There is no other pathology. Sponge and needle counts are correct. Left lower quadrant port site incision closed with a 0 interrupted Vicryl at the fascial level. All incisions closed with interrupted 3-0 Vicryl suture. Benzoin and Steri-Strips applied. Patient tolerated the procedure well, extubated, and taken recovery in stable condition.
[2018-03-03] MEDS: FENTANYL CITRATE INJ/PF 100 MCG/2 ML AMPUL ONE ×2 (12:01→12:15)
[2018-03-03] MEDS: KETOROLAC TROMETHAMINE INJ/PF 30 MG/1 ML SDV IV PRN ×2 (13:50→21:04)
[2018-03-04] MEDS ORDERED: RINGERS SOLUTION,LACTATED 1,000 ML IV PRN (04:40)
[2018-03-04] MEDS: KETOROLAC TROMETHAMINE INJ/PF 30 MG/1 ML SDV IV PRN (04:45)
[2018-03-04 10:20] LABS: APPEARANCE,URINE SLIGHTLY-CLOUDY; BILIRUBIN,URINE NEGATIVE (NEGATIVE); COLOR,URINE YELLOW; GLUCOSE, URINE NEGATIVE (NEGATIVE); KETONES,URINE TRACE mg/dL (NEGATIVE); LEUKOCYTE ESTERASE,URINE NEGATIVE (NEGATIVE); NITRITE,URINE NEGATIVE (NEGATIVE); PROTEIN,URINE NEGATIVE (NEGATIVE); URINE SPECIFIC GRAVITY 1.012; UROBILINOGEN,URINE NEGATIVE mg/dL (<2.0)
--- NOTE | 2018-03-04 12:25 | PDOC PROGRESS REPORT ---
Subjective Progress Note for:: 03/04/18 Subjective:: Feels well. Abdominal pain less. Still having some left sided flank pain. Also having hematuria. Overall improved from admission but not completely recovered either. Reason For Visit: ACUTE APPENDICITIS Physical Exam Vital Signs: Temp Pulse Resp BP Pulse Ox 97.9 F 84 15 98/57 L 99 03/04/18 11:32 03/04/18 11:32 03/04/18 11:32 03/04/18 11:32 03/04/18 11:32 Intake & Output 03/03/18 03/04/18 03/05/18 06:59 06:59 06:59 Intake Total 3600 300 Output Total 2455 Balance 1145 300 Weight 130.2 kg General appearance: PRESENT: no acute distress, cooperative Respiratory exam: PRESENT: clear to auscultation dominic Cardiovascular exam: PRESENT: RRR GI/Abdominal exam: PRESENT: other - Soft, nondistended, mild tenderness without peritoneal signs. Results Laboratory Results: 03/04/18 09:52 Urine Color YELLOW Urine Appearance SLIGHTLY-CLOUDY Urine pH 6.0 Ur Specific Home 1.012 Urine Protein NEGATIVE Urine Glucose (UA) NEGATIVE Urine Ketones TRACE H Urine Blood LARGE H Urine Nitrite NEGATIVE Ur Leukocyte Esterase NEGATIVE Urine WBC (Auto) 20 Urine RBC (Auto) >182 Impressions: Abdomen/Pelvis CT 03/03/18 08:39 IMPRESSION: There is a fluid-filled appendix measuring 13 mm in diameter medial to the cecal base with associated fat stranding. Findings are consistent with appendicitis. No evidence of perforation or abscess. Assessment & Plan - Diagnosis (1) Acute appendicitis Qualifiers: Acute appendicitis type: with localized peritonitis Appendicitis gangrene presence: unspecified whether gangrene present Appendicitis perforation presence: without perforation Appendicitis abscess presence: without abscess Qualified Code(s): K35.30 - Acute appendicitis with localized peritonitis, without perforation or gangrene Is this a current diagnosis for this admission?: Yes Plan: Status post laparoscopic appendectomy. Doing well in regards to this surgery. Plan to discharge patient home. (2) Hematuria Qualifiers: Hematuria type: gross Qualified Code(s): R31.0 - Gross hematuria Is this a current diagnosis for this admission?: Yes Plan: Possibility that she has a kidney stone but no hydroureter is seen by CT scan. Patient will need urology consultation but this can be done as an outpatient since we do not have a urology at our hospital. Will discharge patient home with follow-up at [facility] urology.
--- NOTE | 2018-03-04 13:02 | DISCHARGE SUMMARY E ---
Discharge Summary NAME: REUBEN BARRON : 1990 AGE: 27Y ADMITTED: 03/03/2018 DISCHARGED: 03/04/2018 DISCHARGE DIAGNOSIS: 1. APPENDICITIS. 2. HEMATURIA. PROCEDURE PERFORMED DURING HOSPITALIZATION: Laparoscopic appendectomy performed by Dr. Jose Arnold on 03/03/2018. HOSPITAL COURSE: Patient underwent the above-mentioned surgery. She did well postoperatively. She was feeling better although she still had some abdominal pain and some flank pain. She was noted with gross hematuria during her hospital stay. The CT scan did not demonstrate any evidence of a hydroureter but it was on a contrasted CT scan. Urology was not available at our hospital, however, a consultation with Urology in [facility] was available as an outpatient. I offered this option to the patient and she wanted to be discharged home with followup with Urology. Patient has now been discharged home in good condition. She will follow up at [facility] in a couple of weeks. Outpatient evaluation with [facility] will be also made. She is encouraged to stay active but avoid strenuous activity. She may shower. She is to stay well-hydrated. She is to call us for any concerns. DISCHARGE MEDICATIONS: Percocet 1 p.o. q. 4 hours p.r.n. pain. DIET: She may follow a regular diet at home. DICTATING PHYSICIAN: ALMITA ZAMUDIO M.D. [id number] PHY#: [id number] ID: [id number] JOB#: [id number] ACCT: [id number] cc:Mayela HESS M.D. >
[2018-03-04 13:06] VITALS: BP 101/62
== END 2018-03-04 14:05 | disposition home or self-care (01) ==
LOC: OROUT 08:03 → EH 10:36 → 2N 13:18
PROVIDERS: ADMIT Surgery; ATTEND Surgery
PROC: 0DTJ4ZZ Resection of Appendix, Percutaneous Endoscopic Approach (ICD-10-PCS; principal; 2018-03-03 10:45)
DX: K35.33 Acute appendicitis with perforation, localized peritonitis, and gangrene, with abscess (principal); R31.0 Gross hematuria; E28.2 Polycystic ovarian syndrome; E66.3 Overweight; Z87.19 Personal history of other diseases of the digestive system; Z68.43 Body mass index [BMI] 50.0-59.9, adult
CPT/HCPCS: 99285; 36415; 82962; 83690; 85025; 81025; 80053; 81001 ×2; 88304 ×2; 74177; 44970; G0378 ×2; J2250; J0690; J1100; J3010; J3490 ×3; J1885 ×2; J1170; J0330; J2405; J7120; J2704; J0131; 840

== ENCOUNTER 2018-11-18 14:33 | Emergency (ER) | payer OTHER ==
[2018-11-18] MEDS ORDERED: MORPHINE SULFATE 10 MG/ML INJ IV ONE (15:15)
[2018-11-18] MEDS ORDERED: NORMAL SALINE 1000 ML 1,000 ML IV ONE (15:15)
[2018-11-18] MEDS ORDERED: ONDANSETRON HCL INJ/PF 4 MG/2 ML SDV IV ONE (15:15)
--- NOTE | 2018-11-18 15:20 | ER Document Report ---
ED General - General Chief Complaint: Abdominal Pain Stated Complaint: SHOULDER/BACK PAIN Time Seen by Provider: 11/18/18 15:02 Primary Care Provider: CHRIST TOLEDO DO [NO LOCAL MD] - Follow up as needed Mode of Arrival: Ambulatory Information source: Patient TRAVEL OUTSIDE OF THE U[place] IN LAST 30 DAYS: No - HPI Notes: Patient presents with right shoulder pain. She states been going on since yesterday. Nothing makes it better or worse. She says in addition she has some chest pain goes through to her back. She is been sweaty with the. She is felt slightly short of breath. She states she does not smoke but she does take the Depakote shot. No falls or trauma. The pain is sharp and moderate to severe. No rashes. No cough or cold. - Related Data Allergies/Adverse Reactions: Pertussis Vaccines Allergy (Verified 11/18/18 14:39) Past Medical History - General Information source: Patient - Social History Smoking Status: Never Smoker Frequency of alcohol use: None Drug Abuse: None Family History: Reviewed & Not Pertinent Patient has suicidal ideation: No Patient has homicidal ideation: No Endocrine Medical History: Reports: Hx Hypothyroidism Renal/ Medical History: Denies: Hx Peritoneal Dialysis Psychiatric Medical History: Reports: Hx Bipolar Disorder - Immunizations Hx Diphtheria, Pertussis, Tetanus Vaccination: Yes Review of Systems - Review of Systems Constitutional: denies: Chills, Fever Cardiovascular: Chest pain, Palpitations, Dyspnea Respiratory: Short of breath. denies: Cough Gastrointestinal: Abdominal pain, Nausea. denies: Diarrhea -: Yes All other systems reviewed and negative Physical Exam - Vital signs Vitals: Temp Pulse Resp BP Pulse Ox 98.2 F 101 H 18 141/81 H 99 11/18/18 14:36 11/18/18 14:36 11/18/18 14:36 11/18/18 14:36 11/18/18 14:36 Interpretation: Tachycardic - General General appearance: Appears well, Alert - HEENT Head: Normocephalic, Atraumatic Eyes: Normal Pupils: PERRL - Respiratory Respiratory status: No respiratory distress Chest status: Nontender Breath sounds: Normal Chest palpation: Normal - Cardiovascular Rhythm: Regular, Tachycardia Heart sounds: Normal auscultation Murmur: No - Abdominal Inspection: Normal Distension: No distension Bowel sounds: Normal Tenderness: Nontender Organomegaly: No organomegaly - Back Back: Normal, Nontender - Extremities General upper extremity: Normal inspection, Nontender, Normal color, Normal ROM, Normal temperature General lower extremity: Normal inspection, Nontender, Normal color, Normal ROM, Normal temperature, Normal weight bearing. No: Caden's sign - Neurological Neuro grossly intact: Yes Cognition: Normal Orientation: AAOx4 Sheila Coma Scale Eye Opening: Spontaneous Sheila Coma Scale Verbal: Oriented [place] Coma Scale Motor: Obeys Commands [place] Coma Scale Total: 15 Speech: Normal Motor strength normal: LUE, RUE, LLE, RLE Sensory: Normal - Psychological Associated symptoms: Normal affect, Normal mood - Skin Skin Temperature: Warm Skin Moisture: Dry Skin Color: Normal Course - Re-evaluation Re-evalutation: 11/18/18 17:15 Patient is resting comfortably in the bed. Vital signs are normal. Work-up including imaging and laboratories are unremarkable. No evidence of PE or cardiac disease. No evidence of bony disease. There is no evidence of pulmonary pathology or aortic pathology. I am unsure the exact nature of the patient's pain but I find no emergency medical condition. - Vital Signs Vital signs: Temp Pulse Resp BP Pulse Ox 98.2 F 101 H 18 141/81 H 99 11/18/18 14:36 11/18/18 14:36 11/18/18 14:36 11/18/18 14:36 11/18/18 14:36 - Laboratory Result Diagrams: 11/18/18 15:15 11/18/18 15:15 Laboratory results interpreted by me: 11/18/18 11/18/18 15:15 15:15 RDW 15.9 H Chloride 108 H Carbon Dioxide 21 L Glucose 131 H Laboratory 11/18/18 11/18/18 11/18/18 15:15 15:15 15:15 WBC 8.1 RBC 4.92 Hgb 13.6 Hct 40.1 MCV 81 MCH 27.6 MCHC 33.9 RDW 15.9 H Plt Count 226 Seg Neutrophils % 72.1 Lymphocytes % 21.8 Monocytes % 4.0 Eosinophils % 1.2 Basophils % 0.9 Absolute Neutrophils 5.9 Absolute Lymphocytes 1.8 Absolute Monocytes 0.3 Absolute Eosinophils 0.1 Absolute Basophils 0.1 Sodium 140.0 Potassium 3.8 Chloride 108 H Carbon Dioxide 21 L Anion Gap 11 BUN 12 Creatinine 0.79 Est GFR ( Amer) > 60 Est GFR (Non-Af Amer) > 60 Glucose 131 H Calcium 9.1 Total Bilirubin 0.6 Direct Bilirubin 0.2 Neonat Total Bilirubin Not Reportable Neonat Direct Bilirubin Not Reportable Neonat Indirect Bili Not Reportable AST 20 ALT 19 Alkaline Phosphatase 79 Troponin I < 0.012 Total Protein 7.0 Albumin 4.1 Lipase 68.3 - Diagnostic Test Radiology reviewed: Image reviewed, Reports reviewed Radiology results interpreted by me: 11/18/18 17:02 Chest/Abdomen CTA 11/18/18 15:15 IMPRESSION: NORMAL CTA OF THE CHEST. NO PULMONARY EMBOLI. Shoulder X-Ray 11/18/18 15:15 IMPRESSION: NEGATIVE STUDY OF THE RIGHT SHOULDER. NO RADIOGRAPHIC EVIDENCE OF ACUTE INJURY. - EKG Interpretation by Me EKG shows normal: Sinus rhythm Rate: Normal - 65 Rhythm: NSR [place]/QRS: No: Right axis deviation, Left axis deviation Discharge - Discharge Clinical Impression: Right shoulder pain Qualifiers: Chronicity: acute Qualified Code(s): M25.511 - Pain in right shoulder Condition: Stable Disposition: HOME, SELF-CARE Additional Instructions: If you continue to have pain, fevers, vomiting, or shortness of breath please return to the emergency department or be reevaluated by medical provider. Prescriptions: Tramadol HCl [Ultram] 50 mg PO Q6 PRN 3 Days #12 tablet PRN Reason: Referrals: CHRIST TOLEDO DO [NO LOCAL MD] - Follow up as needed
[2018-11-18 15:46] LABS: ALBUMIN 4.1 g/dL (3.5-5.0); ALKALINE PHOSPHATASE 79 U/L (38-126); ANION GAP 11 (5-19); ASPARTATE AMINO TRANSFERASE 20 U/L (14-36); BILIRUBIN,DIRECT 0.2 mg/dL (0.0-0.4); BILIRUBIN,TOTAL 0.6 mg/dL (0.2-1.3); BLOOD UREA NITROGEN 12 mg/dL (7-20); CALCIUM 9.1 mg/dL (8.4-10.2); CARBON DIOXIDE 21 mmol/L (22-30); CHLORIDE 108 mmol/L (98-107); GLUCOSE 131 mg/dL (75-110); POTASSIUM 3.8 mmol/L (3.6-5.0)
--- NOTE | 2018-11-18 16:15 | RADIOLOGY REPORT (SQ) ---
EXAM DESCRIPTION: SHOULDER RIGHT 2 OR MORE VIEWS COMPLETED DATE/TIME: 11/18/2018 4:03 pm REASON FOR STUDY: pain COMPARISON: None. NUMBER OF VIEWS: Three views. TECHNIQUE: Internal rotation, external rotation, and Y view images acquired of the right shoulder. LIMITATIONS: None. FINDINGS: MINERALIZATION: Normal. BONES: No acute fracture. No worrisome bone lesions. JOINTS: No dislocation. VISUALIZED LUNGS AND RIBS: No pneumothorax. No rib fracture. SOFT TISSUES: No radiopaque foreign body. OTHER: No other significant finding. IMPRESSION: NEGATIVE STUDY OF THE RIGHT SHOULDER. NO RADIOGRAPHIC EVIDENCE OF ACUTE INJURY. TECHNICAL DOCUMENTATION: JOB ID: [id number] [employer]- All Rights Reserved Reading location - IP/workstation name: [email or web address]
[2018-11-18 16:18] LABS: ABSOLUTE BASOPHILS # (AUTO) 0.1 10^3/uL (0.0-0.2); ABSOLUTE EOSINOPHILS # (AUTO) 0.1 10^3/uL (0.0-0.6); ABSOLUTE LYMPHOCYTES (AUTO) 1.8 10^3/uL (0.5-4.7); ABSOLUTE MONOCYTES (AUTO) 0.3 10^3/uL (0.1-1.4); ABSOLUTE NEUT (AUTO) 5.9 10^3/uL (1.7-8.2); BASOPHILS % (AUTO) 0.9 % (0-2); EOSINOPHILS % (AUTO) 1.2 % (0-6); HEMATOCRIT 40.1 % (36.0-47.0); HEMOGLOBIN 13.6 g/dL (12.0-15.5); LYMPHOCYTES % (AUTO) 21.8 % (13-45); MEAN CORPUSCULAR HEMOGLOBIN 27.6 pg (27.0-33.4); MEAN CORPUSCULAR HGB CONC 33.9 g/dL (32.0-36.0); MEAN CORPUSCULAR VOLUME 81 fl (80-97); PLATELET COUNT 226 10^3/uL (150-450); RED BLOOD COUNT 4.92 10^6/uL (3.72-5.28); RED CELL DISTRIBUTION WIDTH 15.9 % (11.5-14.0); SEGMENTED NEUTROPHILS % (AUTO) 72.1 % (42-78); TOTAL CELLS COUNTED % (AUTO) 100 %; WHITE BLOOD COUNT 8.1 10^3/uL (4.0-10.5)
--- NOTE | 2018-11-18 16:37 | RADIOLOGY REPORT (SQ) ---
EXAM DESCRIPTION: CTA CHEST COMPLETED DATE/TIME: 11/18/2018 4:28 pm REASON FOR STUDY: chest pain COMPARISON: None. TECHNIQUE: CT scan of the chest performed using helical scanning technique with dynamic intravenous contrast injection. Images reviewed with lung, soft tissue and bone windows. Reconstructed coronal and sagittal MPR images reviewed. Additional 3 dimensional post-processing performed to develop Maximal Intensity Projection images ([place] P). All images stored on PACS. All CT scanners at this facility use dose modulation, iterative reconstruction, and/or weight based d osing when appropriate to reduce radiation dose to as low as reasonably achievable (ALARA). [facility]: Dose Right [facility]: CareDose [facility]: Dose Right [facility]: Teradose 4D [facility]: [place] CONTRAST TYPE AND DOSE: contrast/concentration: Isovue 350.00 mg/ml; Total Contrast Delivered: 67.0 ml; Total Saline Delivered: 55.0 ml Contrast bolus optimized for the pulmonary arteries. Not diagnostic for the aorta. RENAL FUNCTION: BUN 12, creatinine 0.79 RADIATION DOSE: CT Rad equipment meets quality standard of care and radiation dose reduction techniq ues were employed. CTDIvol: 12.7 - 15.6 mGy. DLP: 607 mGy-cm. . LIMITATIONS: None. FINDINGS: LUNGS AND PLEURA: No masses, infiltrates, or pneumothorax. No pleural effusions or pleura l calcifications. AORTA AND GREAT VESSELS: No aneurysm. Contrast bolus not optimized for the aorta. HEART: No pericardial effusion. No significant coronary artery calcifications. PULMONARY ARTERIES: No emboli visualized in the main pulmonary arteries or the segmental branches. HILAR AND MEDIASTINAL STRUCTURES: No identified masses or abnormal nodes. HARDWARE: None in the chest. UPPER ABDOMEN: No significant findings. Limited exam. THYROID AND OTHER SOFT TISSUES: No masses. No adenopathy. BONES: No acute or significant finding. 3D MIPS: Confirm above findings. OTHER: No other significant finding. IMPRESSION: NORMAL CTA OF THE CHEST. NO PULMONARY EMBOLI. COMMENT: Quality ID # [id number]: Final reports with documentation of one or more dose reduction techniques (e.g., Automated exposure control, adjustment of the mA and/or kV according to patient size, use of iterative reconstruction technique) TECHNICAL DOCUMENTATION: JOB ID: [id number] [employer]- All Rights Reserved Reading location - IP/workstation name: [email or web address]
[2018-11-18 18:17] LABS: APPEARANCE,URINE CLOUDY; BILIRUBIN,URINE NEGATIVE (NEGATIVE); COLOR,URINE YELLOW; GLUCOSE, URINE NEGATIVE (NEGATIVE); KETONES,URINE NEGATIVE (NEGATIVE); LEUKOCYTE ESTERASE,URINE TRACE (NEGATIVE); NITRITE,URINE POSITIVE (NEGATIVE); PROTEIN,URINE 30 mg/dL (NEGATIVE); URINE SPECIFIC GRAVITY 1.026; UROBILINOGEN,URINE NEGATIVE mg/dL (<2.0)
[2018-11-18] MEDS ORDERED: KETOROLAC TROMETHAMINE INJ/PF 30 MG/1 ML SDV IV ONE (18:18)
--- NOTE | 2018-11-18 19:30 | RADIOLOGY REPORT (SQ) ---
EXAM DESCRIPTION: U/S ABDOMEN LIMITED W/O DOP COMPLETED DATE/TIME: 11/18/2018 7:18 pm REASON FOR STUDY: ruq pain/rule out gallbladder COMPARISON: None. TECHNIQUE: Dynamic and static grayscale images acquired of the abdomen and recorded on PACS. Additio nal selected color Doppler and spectral images recorded. LIMITATIONS: Limited visualization. Poor acoustical window FINDINGS: PANCREAS: Limited visualization. no masses seen LIVER: Normal size Mild fatty infiltration. No focal masses. LIVER VASCULATURE: Normal directional flow of the main portal vein and hepatic veins. GALLBLADDER: Sludge. No stones. Normal wall thickness. No pericholecystic fluid. ULTRASOUND-DETECTED ALFONSO'S SIGN: Negative. INTRAHEPATIC DUCTS AND COMMON DUCT: CBD and intrahepatic ducts normal caliber. No filling defects. INFERIOR VENA CAVA: Normal flow. AORTA: No aneurysm. RIGHT KIDNEY: Normal size. Normal echogenicity. No solid or suspicious masses. No hydronephros is. No calcifications. PERITONEAL AND RIGHT PLEURAL SPACE: No ascites or effusions. OTHER: No other significant findings. IMPRESSION: Gallbladder sludge. No evidence of acute cholecystitis. TECHNICAL DOCUMENTATION: JOB ID: [id number] [employer]- All Rights Reserved Reading location - IP/workstation name: [email or web address]
[2018-11-18 19:31] VITALS: BP 104/54
--- NOTE | 2018-11-18 19:57 | EKG REPORT ---
SEVERITY:- BORDERLINE ECG - SINUS ARRHYTHMIA, RATE 56-77 BORDERLINE T ABNORMALITIES, DIFFUSE LEADS : Confirmed by: Fidelina Lopez MD 18-Nov-2018 19:56:09
== END 2018-11-18 19:58 | disposition home or self-care (01) ==
LOC: ER 14:33
DX: M25.511 Pain in right shoulder (principal); N30.00 Acute cystitis without hematuria; K82.8 Other specified diseases of gallbladder; R61 Generalized hyperhidrosis; R06.02 Shortness of breath; R07.9 Chest pain, unspecified; R11.0 Nausea; R10.9 Unspecified abdominal pain; R00.0 Tachycardia, unspecified; F31.9 Bipolar disorder, unspecified; Z79.899 Other long term (current) drug therapy; Z88.7 Allergy status to serum and vaccine
CPT/HCPCS: 93005; 36415; 83690; 85025; 80053; 81001; 84484; 73030; 76705; 71275; 93010; J1885; J2270; J2405; J7030; 96361; 96374; 96375; 99284

== ENCOUNTER 2018-11-25 12:42 | Day surgery (SDC) | payer OTHER ==
[2018-11-21 10:35] LABS: ALBUMIN 4.1 g/dL (3.5-5.0); ALKALINE PHOSPHATASE 69 U/L (38-126); ANION GAP 9 (5-19); ASPARTATE AMINO TRANSFERASE 19 U/L (14-36); BILIRUBIN,DIRECT 0.3 mg/dL (0.0-0.4); BILIRUBIN,TOTAL 0.6 mg/dL (0.2-1.3); BLOOD UREA NITROGEN 12 mg/dL (7-20); CALCIUM 9.5 mg/dL (8.4-10.2); CARBON DIOXIDE 26 mmol/L (22-30); CHLORIDE 104 mmol/L (98-107); GLUCOSE 103 mg/dL (75-110); POTASSIUM 4.2 mmol/L (3.6-5.0); TOTAL PROTEIN 6.9 g/dL (6.3-8.2)
[~2018-11-25 12:42] MED LIST: LACTATED RINGERS 1000 ML IV PRN; LIDOCAINE 0.5% INJ-PF (5 MG/ML) 50 ML SDV SUBCUT PRN
[2018-11-25] MEDS ORDERED: BUPIVACAINE HCL 0.25 % INJ/PF (2.5 MG/1 ML) 30 ML VIAL ONE (13:17)
[2018-11-25] MEDS ORDERED: IBUPROFEN 800 MG in NORMAL SALINE 250 ML IV PRN (13:30)
[2018-11-25] MEDS ORDERED: CEFOXITIN SODIUM 2 GM in DEXTROSE 5%-WATER 100 ML IV PRN (13:30)
[2018-11-25] MEDS ORDERED: ACETAMINOPHEN 325 MG TABLET PO PRN (13:30)
[2018-11-25] MEDS ORDERED: SCOPOLAMINE HYDROBROMIDE 1.5 MG PATCH.TD72 ONE (13:43)
[2018-11-25] MEDS ORDERED: FAMOTIDINE INJ/PF 20 MG/2 ML SDV IV ONE (13:43)
[2018-11-25] MEDS ORDERED: FENTANYL CITRATE INJ/PF 100 MCG/2 ML AMPUL ONE ×2 (14:05→15:55)
[2018-11-25] MEDS ORDERED: MIDAZOLAM 2 MG/2 ML INJ ONE (14:05)
[2018-11-25] MEDS ORDERED: LIDOCAINE 2% INJ-PF (100 MG/5 ML) SYRINGE ONE (14:05)
[2018-11-25] MEDS ORDERED: DEXAMETHASONE SOD PHOSPHATE INJ 4 MG/1 ML VIAL ONE (14:06)
[2018-11-25] MEDS ORDERED: PROPOFOL INJ 200 MG/20 ML VIAL IV ONE (14:06)
[2018-11-25] MEDS ORDERED: SUGAMMADEX SODIUM 200 MG/2 ML SDV IV ONE (14:06)
[2018-11-25] MEDS ORDERED: HYDROMORPHONE HCL INJ/PF 2 MG/ML AMPULE ONE (14:06)
[2018-11-25] MEDS ORDERED: ONDANSETRON HCL INJ/PF 4 MG/2 ML SDV ONE (14:06)
[2018-11-25] MEDS ORDERED: ACETAMINOPHEN 325 MG TABLET ONE (14:21)
[2018-11-25] MEDS ORDERED: RINGERS SOLUTION,LACTATED 1,000 ML IV ONE (14:30)
[2018-11-25] MEDS ORDERED: BUPIVACAINE HCL 0.25 % INJ/PF (2.5 MG/1 ML) 30 ML VIAL INJ ONE (15:10)
[2018-11-25] MEDS ORDERED: OXYCODONE-ACETAMINOPHEN 5-325 MG TABLET PO PRN ×2 (15:19)
[2018-11-25] MEDS ORDERED: MORPHINE SULFATE 10 MG/ML INJ IV PRN (15:19)
[2018-11-25] MEDS ORDERED: FENTANYL CITRATE INJ/PF 100 MCG/2 ML AMPUL IV PRN ×2 (15:19)
[2018-11-25] MEDS ORDERED: MEPERIDINE HCL/PF INJ 25 MG/1 ML DISP.SYRIN IV PRN (15:19)
[2018-11-25] MEDS ORDERED: DIPHENHYDRAMINE HCL 50 MG/ML VIAL IV PRN (15:19)
[2018-11-25] MEDS ORDERED: ONDANSETRON HCL INJ/PF 4 MG/2 ML SDV IV PRN (15:19)
[2018-11-25] MEDS ORDERED: PROMETHAZINE HCL INJ 25 MG/1 ML VIAL IV PRN ×2 (15:19)
[2018-11-25] MEDS ORDERED: FENTANYL CITRATE INJ/PF 100 MCG/2 ML AMPUL INJ ONE (16:05)
[2018-11-25] MEDS: FENTANYL CITRATE INJ/PF 100 MCG/2 ML AMPUL IV PRN ×3 (16:05→16:31)
[2018-11-25] MEDS ORDERED: ACETAMINOPHEN 1,000 MG/100 ML RTUPB IV ONE (17:03)
[2018-11-25] MEDS ORDERED: MORPHINE SULFATE 10 MG/ML INJ ONE (17:30)
[2018-11-25] MEDS ORDERED: SIMETHICONE 80 MG TAB.CHEW ONE (17:34)
[2018-11-25 19:38] VITALS: BP 125/73
--- NOTE | 2018-11-27 14:10 | Operative Report ---
Nonrecallable Operative Report DATE OF SURGERY: 11/25/18 PREOPERATIVE DIAGNOSIS: Symptomatic cholelithiasis POSTOPERATIVE DIAGNOSIS: Same as above OPERATION: Laparoscopic cholecystectomy SURGEON: ABDON KOHLER INDOOR LANDSCAPER/GARDENER: ANISA FRASER ANESTHESIA: GA TISSUE REMOVED OR ALTERED: Gallbladder COMPLICATIONS: None apparent ESTIMATED BLOOD LOSS: Minimal PROCEDURE: Drains/implants: None. Procedure in detail: After informed consent was obtained, the patient was brought into the operating room and laid in the supine position. The area of the abdomen was prepped and draped in a normal sterile fashion. A supraumbilical incision was created with a 15 blade scalpel. Dissection was car ried through the subcutaneous tissue using sharp and blunt dissection. The cicatrix was identified, grasped with a Jonathan clamp, and retracted upwards. The linea alba fascia was incised sharply, the abdomen was entered sharply. The balloon trocar was inserted, and pneumoperitoneum was achieved. A subxiphoid 5 mm port was placed under direct laparoscopic visualization. 2 more 5 mm ports were placed in the right upper quadrant in similar fashion. Atraumatic graspers were placed through the 5 mm ports. The gallbladder was retracted cephalad and laterally. Dissection was begun in the triangle of Calot. The cystic duct and cystic artery were fully visualized and skeletonized, seeing the liver through the triangle. Once the critical view of safety was obtained the cystic duct and cystic artery were clipped and cut with laparoscopic instruments. The gallbladder was then removed from the liver using Bovie electrocautery. The gallbladder was grasped with a large clamp and pulled out through the umbilicus. The camera was reinserted. The hilum was inspected. It was found to be free of any leakage of blood or bile. Once this was confirmed, the 5 mm trochars were removed under direct laparoscopic visualization. The supraumbilical trocar was removed, and pneumoperitoneum was relieved. The supraumbilical fascia was closed using 0 Vicryl suture in [id number]-[id number] fashion. The overlying skin was closed using 4-0 Vicryl Rapide suture in subcuticular fashion. All sponge, instrument, and needle counts were correct x2. Condition: Stable. Anisa Fraser PA-C was scrubbed and present the entirety of the procedure. She assisted with all portions of the procedure, including opening of the abdomen, placement of the trochars, manipulation of the gallbladder, removal of the gallbladder, closure of the fascia, and closure of the skin.
--- NOTE | 2018-11-27 14:11 | Discharge Summary ---
Discharge Summary (SDC) - Discharge Final Diagnosis: Symptomatic cholelithiasis Date of Surgery: 11/25/18 Discharge Date: 11/25/18 Condition: Stable Forms: ASU Anesthesia D/C Instruction, Return to Work, Discharge POC-Surgical Service Treatment or Instructions: REST TODAY. NO DRIVING, OPERATING APPLIANCE, NO LEGAL DECISIONS OR OTHER DECISIONS THAT REQUIRE YOUR FULL ATTENTION. MAY SHOWER AFTER 48 HOURS. NO TUB BATHS OR SWIMMING FOR TWO WEEKS. NO BYPRODUCTS PUMP OPERATOR MORE THAN 10 POUNDS FOR TWO WEEKS. WATCH FOR EXCESSIVE DRAINAGE, BLEEDING, FEVER OVER 101. CONSIDER A STOOL SOFTENER WITH NARCOTIC / OPIOID PAIN MEDICATION. KEEP YOUR FOLLOW UP APPOINTMENT Referrals: ABDON DESOUZA MD [ACTIVE STAFF] - 12/08/18 8:45 am Discharge Diet: As Tolerated Respiratory Treatments at Home: Deep Breathing/Coughing, Incentive Spirometer Discharge Activity: Activity As Tolerated, Balance Activity w/Rest, No Driving, No Lifting Over 10 Pounds, No Lifting/Push/Pulling, No tub bath Home Care Assistance: None Needed Report the Following to Your Physician Immediately: Shortness of Breath, Nausea, Vomiting, Increase in Pain, Yellow Skin, Fever over 101 Degrees, Unusual Bleeding, Drainage-Foul Smelling
== END 2018-11-25 19:20 | disposition home or self-care (01) ==
LOC: OROUT 12:42
PROVIDERS: ATTEND Surgery
DX: K80.20 Calculus of gallbladder without cholecystitis without obstruction (principal)
CPT/HCPCS: 36415; 81025; 80053; 88304 ×2; 00790; 47562; J2250; J1100; J3010; J2001; J2270; J2405; J7060; J7050; J2704; S0028; J0131; J1741; J3490; J0694; 790; J1170

== ENCOUNTER 2019-05-24 21:57 | Emergency (ER) | payer OTHER, BC ==
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
[2019-05-25 00:32] LABS: ABSOLUTE BASOPHILS # (AUTO) 0.1 10^3/uL (0.0-0.2); ABSOLUTE EOSINOPHILS # (AUTO) 0.1 10^3/uL (0.0-0.6); ABSOLUTE LYMPHOCYTES (AUTO) 2.4 10^3/uL (0.5-4.7); ABSOLUTE MONOCYTES (AUTO) 0.3 10^3/uL (0.1-1.4); ABSOLUTE NEUT (AUTO) 4.6 10^3/uL (1.7-8.2); BASOPHILS % (AUTO) 0.7 % (0-2); EOSINOPHILS % (AUTO) 1.4 % (0-6); HEMATOCRIT 39.9 % (36.0-47.0); HEMOGLOBIN 14.1 g/dL (12.0-15.5); LYMPHOCYTES % (AUTO) 32.1 % (13-45); MEAN CORPUSCULAR HEMOGLOBIN 28.8 pg (27.0-33.4); MEAN CORPUSCULAR HGB CONC 35.3 g/dL (32.0-36.0); MEAN CORPUSCULAR VOLUME 82 fl (80-97); MONOCYTES % (AUTO) 4.5 % (3-13); PLATELET COUNT 239 10^3/uL (150-450); RED BLOOD COUNT 4.88 10^6/uL (3.72-5.28); RED CELL DISTRIBUTION WIDTH 15.5 % (11.5-14.0); SEGMENTED NEUTROPHILS % (AUTO) 61.3 % (42-78); TOTAL CELLS COUNTED % (AUTO) 100 %; WHITE BLOOD COUNT 7.6 10^3/uL (4.0-10.5)
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
[2019-05-25 01:37] LABS: ALBUMIN 4.3 g/dL (3.5-5.0); ALKALINE PHOSPHATASE 73 U/L (38-126); ANION GAP 9 (5-19); ASPARTATE AMINO TRANSFERASE 24 U/L (14-36); BILIRUBIN,TOTAL 0.6 mg/dL (0.2-1.3); BLOOD UREA NITROGEN 13 mg/dL (7-20); CALCIUM 9.1 mg/dL (8.4-10.2); CARBON DIOXIDE 26 mmol/L (22-30); CHLORIDE 106 mmol/L (98-107); GLUCOSE 89 mg/dL (75-110); POTASSIUM 4.4 mmol/L (3.6-5.0); TOTAL PROTEIN 7.3 g/dL (6.3-8.2)
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
[2019-05-25 04:44] VITALS: BP 116/81
--- NOTE | 2019-05-25 08:25 | EKG REPORT ---
SEVERITY:- BORDERLINE ECG - SINUS RHYTHM : Confirmed by: Esme Sneed 25-May-2019 08:24:31
== END 2019-05-25 04:43 | disposition home or self-care (01) ==
LOC: ER 21:57
DX: R10.10 Upper abdominal pain, unspecified (principal); R10.819 Abdominal tenderness, unspecified site; M54.9 Dorsalgia, unspecified; Y04.2XXA Assault by strike against or bumped into by another person, initial encounter; Y92.89 Other specified places as the place of occurrence of the external cause; Y99.0 Civilian activity done for income or pay; R61 Generalized hyperhidrosis; Z79.3 Long term (current) use of hormonal contraceptives; Z88.7 Allergy status to serum and vaccine
CPT/HCPCS: 36415; 74022; 80053; 83690; 85025; 93005; 93010; 99284